=== PATIENT | female | born 1945 | race Caucasian/White ===

== ENCOUNTER 2017-11-09 21:31 | Inpatient (IN) | payer MEDICARE, MEDICAID ==
[~2017-11-09] VITALS: Ht 152.4 cm; Wt 53.8 kg
[~2017-11-09 21:31] MED LIST: FENO145T2 PO; LISI-586 PO; METO50TA PO; OMEP20TA PO; PRAV20 PO; SERO200T PO
[2017-11-09 21:58] VITALS: BP 139/60; PULSE 73; RESP 16; TEMP 98.3; O2SAT 98
--- NOTE | 2017-11-09 22:23 | PD ---
HPI . tremulous (Levy Cheng MD) Chief Complaint: Suicide Ideation/Attempt Time Seen by Provider: 22:22 (Tiffanie Vigil) Time Seen by Provider: 22:22 (Levy Cheng MD) Travel History International Travel<30 days: No Contact w/Intl Traveler<30days: No Traveled to known affect area: No (Tiffanie Vigil) International Travel<30 days: No Contact w/Intl Traveler<30days: No Traveled to known affect area: No (Levy Cheng MD) History of Present Illness HPI 78-year-old female with PMH of dementia presents to the ED under Márquez act for psychiatric evaluation. According to the Márquez act the patient states that she is going to cut off her left hand with a pair of scissors. On exam this is a pleasantly confused elderly white female in no acute distress. She denies suicidal or homicidal ideation. She denies any somatic complaints. She is oriented to date, year, the president. She knows that she lives in [place]. She states that she is here "because I kept getting attacked by wild animals." She states that "a neighbor putting them in my yard." She is unable to provide any other meaningful history. (Tiffanie Vigil) HPI pt was seen by the PA for SI and statements , but labs revealed high Blood glucose and the UTI on labs (Levy Cheng MD) PFSH Past Medical History Hx Anticoagulant Therapy: No Blood Disorders: No Anxiety: No Depression: Yes Cancer: No Cardiovascular Problems: Yes Chemotherapy: No Cerebrovascular Accident: No Diabetes: No Diminished Hearing: No Endocrine: No Gout: Yes Genitourinary: Yes Headaches: No Hypertension: Yes Immune Disorder: No Musculoskeletal: No Neurologic: No Psychiatric: Yes Reproductive: No Respiratory: No Migraines: No Schizophrenia: Yes Seizures: No PNEUMOCCOCAL Vaccine (Year): 2 ?: Not Menopausal: Yes : 1 Para: 1 (Tiffanie Vigil) Past Surgical History Genitourinary Surgery: Yes (bladder surgerY) Hysterectomy: Yes (1985) Other Surgery: Yes (left breast biopsy) (Tiffanie Vigil) Social History Alcohol Use: No Tobacco Use: Yes Substance Use: No (Tiffanie Vigil) Allergies-Medications (Allergen,Severity, Reaction): Coded Allergies: fluoxetine (Unverified Allergy, Severe, 02/01/17) Per pharmacist at [facility]. cat dander (Unverified Allergy, Unknown, Irritability/Anxiety, 02/01/17) Reported Meds & Prescriptions Reported Meds & Active Scripts Active Reported Lactulose Liq (Lactulose) 10 Gm/15 Ml Soln 30 Ml PO Q6H PRN Latuda (Lurasidone) 80 Mg Tab 80 Mg PO DAILY Pravastatin 20 Mg Tab 20 Mg PO DAILY Metoprolol Tartrate 25 Mg Tab 25 Mg PO DAILY Vitamin D (Cholecalciferol) 2,000 Unit Tab 50,000 Cap PO DAILY Pantoprazole (Pantoprazole Sodium) 20 Mg Tab 20 Mg PO DAILY Metformin ER (Metformin HCl) 500 Mg Yadi 500 Mg PO DAILY With evening meal Lisinopril 20 Mg Tab 20 Mg PO DAILY Hydrochlorothiazide 12.5 Mg Cap 12.5 Mg PO DAILY Fenofibrate 145 Mg Tab 145 Mg PO DAILY (Levy Cheng MD) Review of Systems ROS Limitations: Poor Historian (Levy Cheng MD) Physical Exam Narrative GENERAL: Well-nourished, well-developed petite female no acute distress. PSYCH: Calm, cooperative, pleasantly confused. SKIN: Focused skin assessment warm/dry. HEAD: Normocephalic. EYES: No scleral icterus. No injection or drainage. NECK: Supple, trachea midline. No JVD or lymphadenopathy. CARDIOVASCULAR: Regular rate and rhythm without murmurs, gallops, or rubs. RESPIRATORY: Breath sounds clear and equal bilaterally. No accessory muscle use. GASTROINTESTINAL: Abdomen soft, non-tender, nondistended. Active bowel sounds. MUSCULOSKELETAL: No cyanosis, or edema. BACK: Nontender without obvious deformity. No CVA tenderness. (Tiffanie Vigil) Narrative GENERAL: awake alert somewhat shakey SKIN: Warm and dry. HEAD: Atraumatic. Normocephalic. EYES: Pupils equal and round. No scleral icterus. No injection or drainage. ENT: No nasal bleeding or discharge. Mucous membranes pink and moist. NECK: Trachea midline. No JVD. CARDIOVASCULAR: Regular rate and rhythm. RESPIRATORY: No accessory muscle use. Clear to auscultation. Breath sounds equal bilaterally. GASTROINTESTINAL: Abdomen soft, non-tender, nondistended. Hepatic and splenic margins not palpable. MUSCULOSKELETAL: Extremities without clubbing, cyanosis, or edema. No obvious deformities. NEUROLOGICAL: Awake and alert. No obvious cranial nerve deficits. no obvious focal deficits . Normal speech. PSYCHIATRIC: suicidal statements at her living facility (Levy Cheng MD) Data Data Last Documented VS Vital Signs Date Time Temp Pulse Resp B/P (MAP) Pulse Ox O2 Delivery O2 Flow Rate FiO2 11/10/17 03:11 79 18 127/78 (94) 98 Room Air 11/10/17 00:12 2.00 11/09/17 21:58 98.3 (Levy Cheng MD) Orders Orders Psych Screen (11/09/17 22:04) Complete Blood Count With Diff (11/09/17 22:15) Comprehensive Metabolic Panel (11/09/17 22:15) Iv Access Insert/Monitor (11/09/17 23:23) Ecg Monitoring (11/09/17 23:23) Sodium Chlor 0.9% 1000 Ml Inj (Ns 1000 M (11/09/17 23:30) Insulin Human Regular Inj (Novolin R Inj (11/09/17 23:30) Blood Glucose (11/09/17 23:23) Blood Gas Venous (Vbg) (11/09/17 23:34) Urinalysis - C+S If Indicated (11/09/17 23:38) Sodium Chlor 0.9% 1000 Ml Inj (Ns 1000 M (11/09/17 23:45) Beta Hydroxybutyrate (Acetone) (11/09/17 22:17) Urine Culture (11/09/17 22:42) Insulin Human Regular Inj (Novolin R Inj (11/10/17 00:30) Sodium Chlor 0.9% 1000 Ml Inj (Ns 1000 M (11/10/17 00:30) Ceftriaxone Inj (Rocephin Inj) (11/10/17 01:15) (Levy Cheng MD) Labs Laboratory Tests Test 11/09/17 22:17 11/09/17 22:42 11/09/17 23:34 White Blood Count 10.1 TH/MM3 Red Blood Count 4.45 MIL/MM3 Hemoglobin 12.6 GM/DL Hematocrit 37.6 % Mean Corpuscular Volume 84.4 FL Mean Corpuscular Hemoglobin 28.3 PG Mean Corpuscular Hemoglobin Concent 33.5 % Red Cell Distribution Width 13.7 % Platelet Count 443 TH/MM3 Mean Platelet Volume 7.8 FL Neutrophils (%) (Auto) 49.0 % Lymphocytes (%) (Auto) 39.4 % Monocytes (%) (Auto) 10.4 % Eosinophils (%) (Auto) 0.6 % Basophils (%) (Auto) 0.6 % Neutrophils # (Auto) 5.0 TH/MM3 Lymphocytes # (Auto) 4.0 TH/MM3 Monocytes # (Auto) 1.1 TH/MM3 Eosinophils # (Auto) 0.1 TH/MM3 Basophils # (Auto) 0.1 TH/MM3 CBC Comment DIFF FINAL Differential Comment Blood Urea Nitrogen 17 MG/DL Creatinine 1.23 MG/DL Random Glucose 511 MG/DL Total Protein 7.9 GM/DL Albumin 4.0 GM/DL Calcium Level 9.4 MG/DL Alkaline Phosphatase 82 U/L Aspartate Amino Transf (AST/SGOT) 17 U/L Alanine Aminotransferase (ALT/SGPT) 33 U/L Total Bilirubin 0.4 MG/DL Sodium Level 131 MEQ/L Potassium Level 3.9 MEQ/L Chloride Level 94 MEQ/L Carbon Dioxide Level 26.8 MEQ/L Anion Gap 10 MEQ/L Estimat Glomerular Filtration Rate 43 ML/MIN B-Hydroxybutyrate 0.09 MMOL/L Urine Color LIGHT-YELLOW Urine Turbidity HAZY Urine pH 5.0 Urine Specific [place] 1.019 Urine Protein NEG mg/dL Urine Glucose (UA) 1000 mg/dL Urine Ketones NEG mg/dL Urine Occult Blood NEG Urine Nitrite NEG Urine Bilirubin NEG Urine Urobilinogen LESS THAN 2.0 MG/DL Urine Leukocyte Esterase LARGE Urine RBC 3 /hpf Urine WBC 146 /hpf Urine Squamous Epithelial Cells <1 /hpf Urine Transitional Epithelial Cells <1 /hpf Urine Bacteria RARE /hpf Urine Mucus FEW /lpf Microscopic Urinalysis Comment CULTURE INDICATED Blood Gas Puncture Site IV Blood Gas Patient Temperature 98.6 Venous Blood pH 7.29 Venous Blood Partial Pressure CO2 53 mmHg Venous Blood Partial Pressure O2 22 mmHg Venous Blood HCO3 25 mmol/L Venous Blood Oxygen Saturation 25 % Venous Blood Oxygen Content 4.6 Vol % Venous Blood Base Excess -1.2 mmol/L Blood Gas Inspired Oxygen 21 % (Levy Chegn MD) MDM Medical Decision Making Medical Screen Exam Complete: Yes Emergency Medical Condition: Yes Differential Diagnosis Adjustment disorder versus anxiety versus bipolar versus depression versus dementia versus electrolyte disorder versus malingering versus mood disorder versus ODD versus psychosis versus PTSD versus schizophrenia versus schizoaffective disorder versus substance-induced mood disorder versus other Narrative Course 78-year-old female with PMH of dementia presents to the ED under Márquez act for psychiatric evaluation. Vitals reviewed. On arrival the patient is pleasantly confused, unable to provide much meaningful history. Physical exam is unremarkable. Lab work ordered and pending. Anticipate medical clearance for psychiatric evaluation. (Tiffanie Vigil) Medical Screen Exam Complete: Yes Emergency Medical Condition: Yes Differential Diagnosis UTI vs hyperglycemia vs sepsis vs DKA vs other Narrative Course urine has multiple WBC and is treated with ceftriaxone, and glucose treated with NS and then 8 Units of Insulin R and now medically cleared for psych eval, SHe is given an Rx for Keflex to take as she is evaluated for psyche (Levy Cheng MD) Diagnosis Primary Impression: Hyperglycemia Additional Impression: UTI (urinary tract infection) Scripts Cephalexin (Keflex) 500 Mg Cap 500 MG PO Q8H for Infection, #21 CAP 0 Refills Prov: Levy Cheng MD 11/10/17 Tiffanie Vigil November 09, 2017 22:23 Levy Cheng MD November 10, 2017 03:37
[2017-11-09 22:32] LABS: BASOPHIL # 0.1 TH/MM3 (0-0.2); BASOPHIL % 0.6 % (0.0-2.0); EOSINOPHIL # 0.1 TH/MM3 (0-0.4); EOSINOPHIL % 0.6 % (0.0-4.0); HEMATOCRIT 37.6 % (35.0-46.0); HEMOGLOBIN 12.6 GM/DL (11.6-15.3); LYMPH % 39.4 % (9.0-44.0); MEAN CELL VOLUME 84.4 FL (80.0-100.0); MEAN CORPUSCULAR HEMOGLOBIN 28.3 PG (27.0-34.0); MEAN CORPUSCULAR HGB CONC 33.5 % (32.0-36.0); MEAN PLATELET VOLUME 7.8 FL (7.0-11.0); MONO % 10.4 % (0.0-8.0); MONOCYTE # 1.1 TH/MM3 (0-0.9); PLATELET COUNT 443 TH/MM3 (150-450); RED BLOOD COUNT 4.45 MIL/MM3 (4.00-5.30); RED CELL DISTRIBUTION WIDTH 13.7 % (11.6-17.2); WHITE BLOOD COUNT 10.1 TH/MM3 (4.0-11.0)
[2017-11-09 23:14] LABS: ALKALINE PHOSPHATASE 82 U/L (45-117); ALT (GPT) 33 U/L (10-53); AST (GOT) 17 U/L (15-37); BICARBONATE 26.8 MEQ/L (21.0-32.0); BLOOD UREA NITROGEN 17 MG/DL (7-18); CALCIUM 9.4 MG/DL (8.5-10.1); CHLORIDE 94 MEQ/L (98-107); CREATININE 1.23 MG/DL (0.50-1.00); GLOMERULAR FILTRATION RATE 43 ML/MIN (>89); SODIUM (NA) 131 MEQ/L (136-145); TOTAL BILIRUBIN ADULT 0.4 MG/DL (0.2-1.0); TOTAL PROTEIN 7.9 GM/DL (6.4-8.2)
[2017-11-09 23:18] LABS: GLUCOSE,RANDOM 511 MG/DL (74-106)
[2017-11-09] MEDS ORDERED: SODIUM CHLOR 0.9% 1000 ML INJ 1,000 ML IV ONE ×2 (23:30→23:45)
[2017-11-09] MEDS ORDERED: INSULIN HUMAN REGULAR 1,000 UNITS/10 ML VIAL IV PUSH ONE (23:30)
[2017-11-09 23:45] VITALS: BP 129/58; PULSE 77; RESP 18; O2SAT 99
[2017-11-10 00:12] VITALS: O2SAT 100
[2017-11-10 00:12] LABS: BACTERIA, URINE RARE /hpf; BILIRUBIN, URINE NEG (NEG); BLOOD, URINE NEG (NEG); GLUCOSE,URINE 1000 mg/dL (NEG); KETONE, URINE NEG (NEG); MUCUS URINE FEW /lpf (OCC); NITRITE,URINE NEG (NEG); SQUAMOUS EPITHELIAL CELL URINE <1 /hpf (0-5); TRANSITIONAL EPI CELLS, URINE <1 /hpf; URINE COLOR LIGHT-YELLOW (YELLW/STRAW); URINE LEUKOCYTE ESTERASE LARGE (NEG)
[2017-11-10] MEDS ORDERED: MEROPENEM 1000 MG VIAL IV SCH (00:30)
[2017-11-10] MEDS ORDERED: INSULIN HUMAN REGULAR 1,000 UNITS/10 ML VIAL IV PUSH ONE (00:30)
[2017-11-10] MEDS ORDERED: SODIUM CHLOR 0.9% 1000 ML INJ 1,000 ML IV ONE (00:30)
[2017-11-10] MEDS ORDERED: VITA20003 PO (00:49)
[2017-11-10] MEDS ORDERED: FENO145T2 PO (00:49)
[2017-11-10] MEDS ORDERED: METF500T4 PO (00:49)
[2017-11-10] MEDS ORDERED: LISI-515 PO (00:49)
[2017-11-10] MEDS ORDERED: HYDR12.57 PO (00:49)
[2017-11-10] MEDS ORDERED: PANT20TA2 PO (00:49)
[2017-11-10] MEDS ORDERED: QUET1TAB9 PO (00:50)
[2017-11-10] MEDS ORDERED: PRAV20TA2 PO (00:51)
[2017-11-10] MEDS ORDERED: LURA80 PO (00:51)
[2017-11-10] MEDS ORDERED: METO25TA3 PO (00:51)
[2017-11-10] MEDS ORDERED: LACT10SO PO (00:51)
[2017-11-10] MEDS ORDERED: cefTRIAXone INJ 1,000 MG in SODIUM CHLORIDE 0.9% INJ 100 ML IV ONE (01:15)
[2017-11-10 03:11] VITALS: BP 127/78; PULSE 79; RESP 18; O2SAT 98
[2017-11-10] MEDS ORDERED: CEPH-460 PO (03:54)
--- NOTE | 2017-11-10 05:03 | RADRPT ---
EXAM DATE: 11/10/2017 4:29 AM EDT AGE/SEX: 72 years / Female INDICATIONS: Cough. CLINICAL DATA: This is the patient's initial encounter. Patient reports that signs and symptoms have been present for 1 day and indicates a pain score of 0/10. MEDICAL/SURGICAL HISTORY: Hypertension. Smoker. Hysterectomy. COMPARISON: No prior [facility] exams available for comparison. FINDINGS: PA and lateral views of the chest demonstrate the lungs to be symmetrically aerated without evidence of mass, infiltrate or effusion. The cardiomediastinal contours are unremarkable. Osseous structures are intact. CONCLUSION: No acute cardiopulmonary disease. There is no evidence of pneumonia. Electronically signed by: Luis Humphries MD 11/10/2017 5:02 AM EDT
[2017-11-10 05:32] VITALS: BP 110/65; PULSE 78; RESP 16; TEMP 98.1; O2SAT 98
[2017-11-10] MEDS ORDERED: LORazepam 1 MG TAB PO PRN (07:45)
[2017-11-10] MEDS ORDERED: ALUMINUM/MAGNESIUM/SIMETH 30 ML CUP PO PRN (07:45)
[2017-11-10] MEDS ORDERED: LORazepam 2 MG/ML VIAL IM PRN ×2 (07:45)
[2017-11-10] MEDS ORDERED: ACETAMINOPHEN 325 MG TAB PO PRN (07:45)
[2017-11-10] MEDS ORDERED: MAGNESIUM HYDROXIDE SUSP 30 ML CUP PO PRN (07:45)
[2017-11-10] MEDS: NICOTINE 21 MG/24 HR PATCH T-DERMAL SCH (09:00)
[2017-11-10 10:34] VITALS: BP 141/60; PULSE 67; RESP 18; TEMP 98.3; O2SAT 99
[2017-11-10] MEDS: LISINOPRIL 20 MG TAB PO SCH (11:07)
[2017-11-10] MEDS: PANTOPRAZOLE SOD 20 MG DELAYED RELEASE TAB PO SCH (11:07)
[2017-11-10] MEDS: metFORMIN HCL 500 MG TAB PO SCH (11:07)
[2017-11-10] MEDS: HYDROCHLOROTHIAZIDE 12.5 MG CAP PO SCH (11:07)
[2017-11-10] MEDS: METOPROLOL TARTRATE 25 MG TAB PO SCH (11:07)
[2017-11-10] MEDS: LURASIDONE 80 MG TAB PO SCH (11:07)
[2017-11-10] MEDS: FENOFIBRATE 145 MG TAB PO SCH (11:07)
[2017-11-10] MEDS: PRAVASTATIN SOD 20 MG TAB PO SCH (11:08)
--- NOTE | 2017-11-10 12:28 | HHI.HP ---
Provisional Diagnosis Admission Date November 10, 2017 at 07:38 [place] I. Schizophrenia [place] II. Deferred [place] III. UTI, DM [place] IV. non-compliant with medication [place] V. 40 Certification of Person's Competence To Provide Express and Informed Consent I have personally examined Tammi Champion , a person being served at [facility] on, November 10, 2017 11:59. Express and informed consent means consent voluntarily given in writing, by a competent person, after sufficient explanation and disclosure of the subject matter involved to enable the person to make a knowing and willful decision without any element of force, fraud, deceit, duress, or other form of constraint or coercion. This person is 18 years of age or older, is not now known to be incompetent to consent to treatment with a guardian advocate, and does not have a health care surrogate or proxy currently making medical treatment decisions. I have found this person to be one of the following: [] Competent to provide express and informed consent, as defined above, for voluntary admission to this facility and is competent to provide express and informed consent for treatment. He/she has the consistent capacity to make well reasoned, willful, and knowing decisions concerning his or her medical or mental health treatment. The person fully and consistently understands the purpose of the admission for examination/placement and is fully capable of personally exercising all rights assured under [place] [] Incompetent to provide express and informed consent to voluntary admission, and this is incompetent to provide express and informed consent to treatment. The person must be transferred to involuntary status and a petition for a guardian advocate filed with the Circuit Court. [x] Refusing to provide express and informed consent to voluntary admission but is competent to provide express and informed consent for treatment. The person must be discharged or transferred to involuntary status. Form shall be completed within 24 hours of a person's arrival at the receiving facility and filed in the clinical record of each person: 1. Admitted on a voluntary basis 2. Permitted to provide express and informed consent to his/her own treatment 3. Allowed to transfer from involuntary to voluntary status 4. Prior to permitting a person to consent to his or her own treatment after having been previously found incompetent to consent to treatment. History of Present Illness Capacity: Has Capacity HPI The patient is a 72-year-old woman, domiciled in [facility], , with a 50 y/o daughter, supported by SS, with PPHx od schizophrenia and dementia, multiple psychiatric hospitalizations, hospitalized here in [place] in 2014, documentation reviewed, no SAs, she is on Latuda 80 mg precribed by visiting psychiatrist, with PMH of DM, HTN, who presents to the ED under Márquez act for psychiatric evaluation. According to the Márquez act the patient states that she is going to cut off her left hand with a pair of scissors to kill her self. On initial ER exam this is a pleasantly confused elderly white female in no acute distress. She denies suicidal or homicidal ideation. She denies any somatic complaints. She is oriented to date, year, the president. She knows that she lives in [place]. She states that she is here "because I kept getting attacked by wild animals." She states that "a neighbor putting them in my yard." She is unable to provide any other meaningful history. On psychiatric evaluation the patient is calm, cooperative. The patient reports that she is very hungry. She says that she had a good sleep. She is malodorous disorganized, but redirectable. The patient reports that she has been very depressed. She also states that she is "very suicidal" but at the same time she is laughing inappropriately. The patient reported that she has been hearing voices telling her different things, but would not elaborate about these voices. "Sometimes the voices tell me go here or go there". She reports that she has been so depressed that she stopped taking her medication for diabetes, hypertension and schizophrenia. "I do not care anymore". The patient does not have an active plan to commit suicide at this moment. He is more focused in getting. She has been a little bit agitated in the ER, very disorganized, talking to herself. But no aggressive behavior reported. The patient is fully oriented 3, with no fluctuation of consciousness, no attention deficit at this moment. The patient denies the use of alcohol and illegal drugs. She was initially diagnosed with UTI in the ER, was treated with Keflex 100 mg every 8 hours, her random glucose was over 500s teated with insulin. Review of Systems Constitutional: DENIES: Diaphoretic episodes, Fatigue, Fever, Weight gain, Weight loss, Chills, Dizziness, Change in appetite, Night Sweats Endocrine: DENIES: Abnorml menstrual pattern, Heat/cold intolerance, Polydipsia , Polyuria, Polyphagia Eyes: DENIES: Blurred vision, Diplopia, Eye inflammation, Eye pain, Vision loss , Photosensitivity, Double Vision Ears, nose, mouth, throat: DENIES: Tinnitus, Hearing loss, Vertigo, Nasal discharge, Oral lesions, Throat pain, Hoarseness, Ear Pain, Running Nose, Epistaxis, Sinus Pain, Toothache, Odynophagia Respiratory: DENIES: Apneas, Cough, Snoring, Wheezing, Hemoptysis, Sputum production, Shortness of breath Cardiovascular: DENIES: Chest pain, Palpitations, Syncope, Dyspnea on Exertion , PND, Lower Extremity Edema, Orthopnea, Claudication Gastrointestinal: DENIES: Abdominal pain, Black stools, Bloody stools, Constipation, Diarrhea, Nausea, Vomiting, Difficulty Swallowing, Anorexia Genitourinary: DENIES: Abnormal vaginal bleeding, Dysmenorrhea, Dyspareunia, Sexual dysfunction, Urinary frequency, Urinary incontinence, Urgency, Hematuria , Dysuria, Nocturia, Vaginal discharge Musculoskeletal: DENIES: Joint pain, Muscle aches, Stiffness, Joint Swelling, Back pain, Neck pain Integumentary: DENIES: Abnormal pigmentation, Pruritus, Rash, Nail changes, Breast masses, Breast skin changes, Nipple discharge Immunologic/allergic: DENIES: Eczema, Urticaria Neurologic: DENIES: Abnormal gait, Headache, Localized weakness, Paresthesias, Seizures, Speech Problems, Tremor, Poor Balance Psychiatric: COMPLAINS OF: Depression, Delusions, DENIES: Anxiety, Confusion, Mood changes, Hallucinations, Agitation, Suicidal Ideation, Homicidal Ideation Past Psych History Violence risk - self (6 mos) increased Substance Abuse History Drugs/Alcohol past 12 months Denies the use of drugs and alcohol Past Family Social History Coded Allergies: fluoxetine (Unverified Allergy, Severe, 02/01/17) Per pharmacist at [facility]. cat dander (Unverified Allergy, Unknown, Irritability/Anxiety, 02/01/17) Active Scripts Cephalexin (Keflex) 500 Mg Cap, 500 MG PO Q8H for Infection, #21 CAP 0 Refills Prov:Levy Cheng MD 11/10/17 Reported Medications Lactulose Liq (Lactulose Liq) 10 Gm/15 Ml Soln, 30 ML PO Q6H Y for CONSTIPATION , ML 0 Refills 11/10/17 Lurasidone (Latuda) 80 Mg Tab, 80 MG PO DAILY, #30 TAB 0 Refills 11/10/17 Pravastatin (Pravastatin) 20 Mg Tab, 20 MG PO DAILY for Cholesterol Management, #30 TAB 0 Refills 11/10/17 Metoprolol Tartrate (Metoprolol Tartrate) 25 Mg Tab, 25 MG PO DAILY, #30 TAB 0 Refills 11/10/17 Cholecalciferol (Vitamin D) 2,000 Unit Tab, 19632 CAP PO DAILY 11/10/17 Pantoprazole (Pantoprazole) 20 Mg Tab, 20 MG PO DAILY for Reflux, #30 TAB 0 Refills 11/10/17 Metformin ER (Metformin ER) 500 Mg Yadi, 500 MG PO DAILY for Blood Sugar Management, TAB 0 Refills With evening meal 11/10/17 Lisinopril (Lisinopril) 20 Mg Tab, 20 MG PO DAILY, #30 TAB 0 Refills 11/10/17 Hydrochlorothiazide (Hydrochlorothiazide) 12.5 Mg Cap, 12.5 MG PO DAILY, #30 CAP 0 Refills 11/10/17 Fenofibrate (Fenofibrate) 145 Mg Tab, 145 MG PO DAILY, #30 TAB 0 Refills 11/10/17 Discontinued Reported Medications Quetiapine (Quetiapine) 200 Mg Tab, 200 MG PO BID, #60 TAB 0 Refills 11/10/17 Current Medications Medications (Trade) Dose Ordered Sig/Susy Route Start Time Stop Time Status Last Admin (Keflex) 500 mg Q8HR PO 11/11/17 06:00 (Tricor) 145 mg DAILY PO 11/10/17 09:00 11/10/17 11:07 (Microzide) 12.5 mg DAILY PO 11/10/17 09:00 11/10/17 11:07 (Prinivil) 20 mg DAILY PO 11/10/17 09:00 11/10/17 11:07 (Latuda) 80 mg DAILY PO 11/10/17 09:00 11/10/17 11:07 (Lopressor) 25 mg DAILY PO 11/10/17 09:00 11/10/17 11:07 (Protonix) 20 mg DAILY PO 11/10/17 09:00 11/10/17 11:07 (Pravachol) 20 mg DAILY PO 11/10/17 09:00 11/10/17 11:08 (Glucophage) 500 mg DAILY PO 11/10/17 09:00 11/10/17 11:07 (Ativan) 1 mg Q6H PRN PO 11/10/17 07:45 (Ativan Inj) 1 mg Q6H PRN IM 11/10/17 07:45 (Ativan) 0.5 mg Q12H PRN PO 11/10/17 07:45 (Ativan Inj) 0.5 mg Q12H PRN IM 11/10/17 07:45 (Tylenol) 650 mg Q4H PRN PO 11/10/17 07:45 (Milk Of Magnesia Liq) 30 ml DAILY PRN PO 11/10/17 07:45 (Mag-Al Plus Susp Liq) 30 ml Q6H PRN PO 11/10/17 07:45 (Habitrol 21 Mg Patch.24 Hr) 1 patch DAILY T-DERMAL 11/10/17 09:00 Family Psych History Grand mother with Schizophrenia Social History Patient was born in [place], Domiciled in [facility], , she has a 50 y/ o daughter, highest level education is HS Patient's Strengths (min. 2) She lives in a structured environment Physical Exam Vital Signs Vital Signs Date Time Temp Pulse Resp B/P (MAP) Pulse Ox O2 Delivery O2 Flow Rate FiO2 11/10/17 10:34 98.3 67 18 141/60 (87) 99 11/10/17 05:32 Room Air 11/10/17 00:12 2.00 I/O 11/10/17 11/10/17 11/11/17 08:00 16:00 00:00 Intake Total 4100 ml Balance 4100 ml Lab Results Test 11/09/17 22:17 11/09/17 22:42 11/09/17 23:34 White Blood Count 10.1 TH/MM3 Red Blood Count 4.45 MIL/MM3 Hemoglobin 12.6 GM/DL Hematocrit 37.6 % Mean Corpuscular Volume 84.4 FL Mean Corpuscular Hemoglobin 28.3 PG Mean Corpuscular Hemoglobin Concent 33.5 % Red Cell Distribution Width 13.7 % Platelet Count 443 TH/MM3 Mean Platelet Volume 7.8 FL Neutrophils (%) (Auto) 49.0 % Lymphocytes (%) (Auto) 39.4 % Monocytes (%) (Auto) 10.4 % Eosinophils (%) (Auto) 0.6 % Basophils (%) (Auto) 0.6 % Neutrophils # (Auto) 5.0 TH/MM3 Lymphocytes # (Auto) 4.0 TH/MM3 Monocytes # (Auto) 1.1 TH/MM3 Eosinophils # (Auto) 0.1 TH/MM3 Basophils # (Auto) 0.1 TH/MM3 CBC Comment DIFF FINAL Differential Comment Blood Urea Nitrogen 17 MG/DL Creatinine 1.23 MG/DL Random Glucose 511 MG/DL Total Protein 7.9 GM/DL Albumin 4.0 GM/DL Calcium Level 9.4 MG/DL Alkaline Phosphatase 82 U/L Aspartate Amino Transf (AST/SGOT) 17 U/L Alanine Aminotransferase (ALT/SGPT) 33 U/L Total Bilirubin 0.4 MG/DL Sodium Level 131 MEQ/L Potassium Level 3.9 MEQ/L Chloride Level 94 MEQ/L Carbon Dioxide Level 26.8 MEQ/L Anion Gap 10 MEQ/L Estimat Glomerular Filtration Rate 43 ML/MIN B-Hydroxybutyrate 0.09 MMOL/L Urine Color LIGHT-YELLOW Urine Turbidity HAZY Urine pH 5.0 Urine Specific [place] 1.019 Urine Protein NEG mg/dL Urine Glucose (UA) 1000 mg/dL Urine Ketones NEG mg/dL Urine Occult Blood NEG Urine Nitrite NEG Urine Bilirubin NEG Urine Urobilinogen LESS THAN 2.0 MG/DL Urine Leukocyte Esterase LARGE Urine RBC 3 /hpf Urine WBC 146 /hpf Urine Squamous Epithelial Cells <1 /hpf Urine Transitional Epithelial Cells <1 /hpf Urine Bacteria RARE /hpf Urine Mucus FEW /lpf Microscopic Urinalysis Comment CULTURE INDICATED Blood Gas Puncture Site IV Blood Gas Patient Temperature 98.6 Venous Blood pH 7.29 Venous Blood Partial Pressure CO2 53 mmHg Venous Blood Partial Pressure O2 22 mmHg Venous Blood HCO3 25 mmol/L Venous Blood Oxygen Saturation 25 % Venous Blood Oxygen Content 4.6 Vol % Venous Blood Base Excess -1.2 mmol/L Blood Gas Inspired Oxygen 21 % Date/Time Source Procedure Growth Status 11/09/17 22:42 Urine Clean Catch Urine Culture Pending Received Mental Status Examination Appearance: Malodorous Consciousness: Alert Orientation: x4 Motor Activity: Normal gait Speech: Unremarkable Language: Adequate Fund of Knowledge: Adequate Attention and Concentration: Adequate Memory: Unremarkable Mood: Appropriate, Sad Affect: Irritable Thought Process & Associations: Disorganized Thought Content: Appropriate Hallucination Type: None Delusion Type: None Suicidal Ideation: Yes Suicidal Plan: Yes Suicidal Intention: No Homicidal Ideation: No Homicidal Plan: No Homicidal Intention: No Insight: Poor Judgment: Poor Assessment & Plan Problem List: (1) Schizophrenia ICD Codes: F20.9 - Schizophrenia, unspecified Assessment & Plan: Psychiatric evaluation today the patient is quite disorganized and confused, reported symptomatology of depression with suicidal ideation. Patient was brought to the hospital because she was found with scissures in her hand stated that she wanted to commit suicide. The patient continues to be suicidal, no plan at the moment, she also has been self neglecting, no taking her medication for diabetes, hypertension and schizophrenia. Patient has a long history of schizophrenia, multiple psychiatric hospitalizations, suicide attempts, she tends to decompensate when she stopped taking psychotropics. Due to the level of psychosis and risk of danger to self, the patient would be admitted in psychiatry for stabilization and safety. Will restart Latuda 80 mg daily. Will continue Keflex 500 mg every 8 hours for 21 days for UTI. Will consult psychiatry for second opinion. Will consult hospitalist to follow-up with UTI, hyper to and diabetes. Brief supportive psychotherapy, psychoeducation and motivation provided. Collateral information from her daughter could not be obtained at this moment. Transfer to [facility]. Assessment & Plan Estimated LOS: Piter Hung MD November 10, 2017 12:28
[2017-11-10 18:45] VITALS: BP 95/45; PULSE 62; RESP 17; TEMP 98.2; O2SAT 99
[2017-11-11] MEDS: CEPHALEXIN MONOHYDRATE 500 MG CAP PO SCH ×3 (06:32→21:26)
[2017-11-11 06:38] VITALS: BP 122/58; PULSE 59; RESP 16; TEMP 97.9; O2SAT 99
[2017-11-11] MEDS: NICOTINE 21 MG/24 HR PATCH T-DERMAL SCH (09:00)
[2017-11-11] MEDS: METOPROLOL TARTRATE 25 MG TAB PO SCH ×2 (09:00→09:29)
[2017-11-11] MEDS: PRAVASTATIN SOD 20 MG TAB PO SCH (09:28)
[2017-11-11] MEDS: LURASIDONE 80 MG TAB PO SCH (09:28)
[2017-11-11] MEDS: PANTOPRAZOLE SOD 20 MG DELAYED RELEASE TAB PO SCH (09:28)
[2017-11-11] MEDS: HYDROCHLOROTHIAZIDE 12.5 MG CAP PO SCH (09:29)
[2017-11-11] MEDS: metFORMIN HCL 500 MG TAB PO SCH (09:29)
[2017-11-11] MEDS: LISINOPRIL 20 MG TAB PO SCH (09:29)
[2017-11-11] MEDS: FENOFIBRATE 145 MG TAB PO SCH (09:29)
[2017-11-11 11:38] LABS: BICARBONATE 24.7 MEQ/L (21.0-32.0); BLOOD UREA NITROGEN 16 MG/DL (7-18); CALCIUM 9.7 MG/DL (8.5-10.1); CHLORIDE 101 MEQ/L (98-107); CHOLESTEROL 161 MG/DL (120-200); CHOLESTEROL/ HDL RATIO 3.95 RATIO; CREATININE 0.92 MG/DL (0.50-1.00); GLOMERULAR FILTRATION RATE 60 ML/MIN (>89); GLUCOSE,RANDOM 332 MG/DL (74-106); HDL CHOLESTEROL 40.7 MG/DL (40.0-60.0); LDL CHOLESTEROL 84 MG/DL (0-99); SODIUM (NA) 135 MEQ/L (136-145); TRIGLYCERIDES 182 MG/DL (42-150)
[2017-11-11] MEDS ORDERED: hydrOXYzine HCL 50 MG TAB PO PRN (14:45)
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
[2017-11-11 15:51] LABS: HEMOGLOBIN A1C 15.2 % (4.3-6.0)
[2017-11-11 18:00] VITALS: BP 128/59; PULSE 85; RESP 16; TEMP 98; O2SAT 98
[2017-11-12] MEDS: CEPHALEXIN MONOHYDRATE 500 MG CAP PO SCH ×3 (06:15→20:19)
[2017-11-12 06:38] VITALS: BP 98/47; PULSE 71; RESP 16; TEMP 98.1; O2SAT 97
[2017-11-12] MEDS: NICOTINE 21 MG/24 HR PATCH T-DERMAL SCH (09:00)
[2017-11-12] MEDS: LISINOPRIL 20 MG TAB PO SCH (10:06)
[2017-11-12] MEDS: HYDROCHLOROTHIAZIDE 12.5 MG CAP PO SCH (10:06)
[2017-11-12] MEDS: PRAVASTATIN SOD 20 MG TAB PO SCH (10:06)
[2017-11-12] MEDS: METOPROLOL TARTRATE 25 MG TAB PO SCH (10:06)
[2017-11-12] MEDS: PANTOPRAZOLE SOD 20 MG DELAYED RELEASE TAB PO SCH (10:06)
[2017-11-12] MEDS: FENOFIBRATE 145 MG TAB PO SCH (10:06)
[2017-11-12] MEDS: LURASIDONE 80 MG TAB PO SCH (10:07)
[2017-11-12] MEDS: metFORMIN HCL 500 MG TAB PO SCH (10:07)
--- NOTE | 2017-11-12 15:09 | HHI.PYPN ---
Subjective Remarks Chart reviewed and discussed with nursing. Patient is in her room without a gown. She is confused and rambling with loose associations. 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 Her blood glucose on 11/09 was 511 and her glucose on 11/11 was 322. She is medication compliant. She states that she is sleeping and eating well. Her mood is good. She is very lonely and like to have people in her room. When asked if thought she could harm herself of others she responded, " no, I am not that kind of person." Mental Status Examination Appearance: Malodorous Consciousness: Alert Orientation: x4 Motor Activity: Normal gait Speech: Unremarkable Language: Adequate Fund of Knowledge: Adequate Attention and Concentration: Adequate Memory: Unremarkable Mood: Appropriate, Sad Affect: Irritable Thought Process & Associations: Loose associations, Disorganized Thought Content: Appropriate Hallucination Type: None Delusion Type: None Suicidal Ideation: No Suicidal Plan: No Suicidal Intention: No Homicidal Ideation: No Homicidal Plan: No Homicidal Intention: No Insight: Poor Judgment: Poor Results Labs Date/Time Source Procedure Growth Status 11/09/17 22:42 Urine Clean Catch Urine Culture - Final Staphylococcus Lugdunensis Complete Vitals/IOs Vital Signs Date Time Temp Pulse Resp B/P (MAP) Pulse Ox O2 Delivery O2 Flow Rate FiO2 11/12/17 06:38 98.1 71 16 98/47 (64) 97 11/10/17 05:32 Room Air 11/10/17 00:12 2.00 Intake and Output 11/12/17 11/12/17 11/13/17 08:00 16:00 00:00 Intake Total 960 ml Balance 960 ml Assessment & Plan Problem List: (1) Schizophrenia ICD Codes: F20.9 - Schizophrenia, unspecified Assessment & Plan: Patient is confused and disorganized. She is a diabetic with an elevated blood glucose. Medical consult placed for follow up. She denies AVH and does not appear internally stimulated. She is able to recall the day and month , but not the year. She is pleasant and asked this provider to stay longer so that she would have company. Assessment & Plan Estimated LOS: days Justification for Cont. Inpt. Moving this patient to a lower level of care may result in her decompensation. Problem Qualifiers (1) Schizophrenia: Qualified Codes: F20.1 - Disorganized schizophrenia Kirsten Mayen November 12, 2017 15:09
[2017-11-12] MEDS ORDERED: GLUCAGON 1 MG/ML VIAL OTHER PRN (16:00)
[2017-11-12] MEDS ORDERED: DEXTROSE 50% IN WATER 50 ML VIAL(D50) IV PUSH PRN (16:00)
[2017-11-12] MEDS: INSULIN ASPART SUPPLEMENTAL SCALE SQ SCH ×2 (16:52→20:18)
[2017-11-12 18:00] VITALS: BP 130/58; PULSE 69; RESP 16; TEMP 97.4; O2SAT 94
[2017-11-13 05:22] VITALS: BP 109/56; PULSE 71; RESP 16; TEMP 97.6; O2SAT 98
[2017-11-13] MEDS: CEPHALEXIN MONOHYDRATE 500 MG CAP PO SCH (05:30)
[2017-11-13] MEDS: INSULIN ASPART SUPPLEMENTAL SCALE SQ SCH ×4 (06:46→21:00)
[2017-11-13] MEDS: METOPROLOL TARTRATE 25 MG TAB PO SCH (09:35)
[2017-11-13] MEDS: PANTOPRAZOLE SOD 20 MG DELAYED RELEASE TAB PO SCH (09:35)
[2017-11-13] MEDS: HYDROCHLOROTHIAZIDE 12.5 MG CAP PO SCH (09:35)
[2017-11-13] MEDS: PRAVASTATIN SOD 20 MG TAB PO SCH (09:35)
[2017-11-13] MEDS: LISINOPRIL 20 MG TAB PO SCH (09:35)
[2017-11-13] MEDS: FENOFIBRATE 145 MG TAB PO SCH (09:35)
[2017-11-13] MEDS: metFORMIN HCL 500 MG TAB PO SCH ×2 (09:36→17:36)
[2017-11-13] MEDS: LURASIDONE 80 MG TAB PO SCH (09:36)
[2017-11-13] MEDS ORDERED: GLUCAGON 1 MG/ML VIAL OTHER PRN (10:00)
[2017-11-13] MEDS ORDERED: DEXTROSE 50% IN WATER 50 ML VIAL(D50) IV PUSH PRN (10:00)
[2017-11-13] MEDS ORDERED: cloNIDine HCL 0.1 MG TAB PO PRN (10:15)
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
[2017-11-13] MEDS: INSULIN DETEMIR 100 UNITS/ML VIAL SQ SCH (11:31)
[2017-11-13] MEDS: CIPROFLOXACIN 500 MG TAB PO SCH (12:00)
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
[2017-11-13 19:02] VITALS: BP 108/59; PULSE 67; RESP 16; TEMP 97.7; O2SAT 67
[2017-11-14] MEDS: CIPROFLOXACIN 500 MG TAB PO SCH
[2017-11-14 04:10] VITALS: BP 106/52; PULSE 70; RESP 16; TEMP 97.6; O2SAT 95
[2017-11-14] MEDS: INSULIN ASPART SUPPLEMENTAL SCALE SQ SCH ×4 (08:00→21:00)
[2017-11-14] MEDS: INSULIN DETEMIR 100 UNITS/ML VIAL SQ SCH ×2 (08:00→20:59)
[2017-11-14 08:11] LABS: CALCIUM 8.9 MG/DL (8.5-10.1); CREATININE 0.87 MG/DL (0.50-1.00)
[2017-11-14] MEDS: LISINOPRIL 20 MG TAB PO SCH (09:00)
[2017-11-14] MEDS: METOPROLOL TARTRATE 25 MG TAB PO SCH (09:00)
[2017-11-14] MEDS: HYDROCHLOROTHIAZIDE 12.5 MG CAP PO SCH (09:00)
[2017-11-14 09:15] VITALS: BP 104/55; PULSE 64
[2017-11-14] MEDS: metFORMIN HCL 500 MG TAB PO SCH ×2 (09:16→17:28)
[2017-11-14] MEDS: PANTOPRAZOLE SOD 20 MG DELAYED RELEASE TAB PO SCH (09:16)
[2017-11-14] MEDS: PRAVASTATIN SOD 20 MG TAB PO SCH (09:16)
[2017-11-14] MEDS: FENOFIBRATE 145 MG TAB PO SCH (09:22)
[2017-11-14] MEDS: LURASIDONE 80 MG TAB PO SCH (09:22)
--- NOTE | 2017-11-14 12:35 | HHI.PR ---
Subjective Remarks Follow-up on patient with hypertension, diabetes, UTI. Patient seen and examined. Patient states that she does occasionally get dizzy upon standing but states she has not had any issues for the past several days and did not feel dizzy this morning. She denies any fever chills. She denies any chest pain or shortness of breath. She denies any nausea, vomiting or abdominal pain. She denies any urinary difficulties, diarrhea or constipation. She tells me that she believes her entire body has been replaced with steel. Discussed with nursing staff, low BP this a.m. No other acute issues noted. Objective Vitals Vital Signs Date Time Temp Pulse Resp B/P (MAP) Pulse Ox O2 Delivery O2 Flow Rate FiO2 11/14/17 09:15 64 104/55 (71) 11/14/17 04:10 97.6 70 16 106/52 (70) 95 11/13/17 19:02 97.7 67 16 108/59 (75) 67 I/O 11/13/17 11/13/17 11/13/17 11/14/17 11/14/17 11/14/17 07:00 15:00 23:00 07:00 15:00 23:00 Intake Total 600 ml Balance 600 ml Intake Oral 600 ml # Voids 3 Result Diagram: 11/14/17 0613 Imaging Last Impressions Chest X-Ray 11/10/17 0000 Signed Impressions: CONCLUSION: No acute cardiopulmonary disease. There is no evidence of pneumonia. Objective Remarks GENERAL: Well-developed well-nourished pleasant elderly female, no acute distress. Sitting in the day room watching TV. Appears comfortable. SKIN: Warm and dry. No obvious rash. HEAD: Atraumatic. Normocephalic. EYES: Extraocular motions intact. No scleral icterus. No injection or drainage. ENT: Nose without drainage. Airway patent. MMM. NECK: Trachea midline. CARDIOVASCULAR: Regular rate and rhythm without murmurs RESPIRATORY: Nonlabored. Clear to auscultation. Breath sounds equal bilaterally. No wheezes GASTROINTESTINAL: Abdomen soft, non-tender, nondistended. No guarding. MUSCULOSKELETAL: Extremities without edema. No obvious deformities. NEUROLOGICAL: Awake and alert. Able to move all extremities spontaneously. No focal neurologic finding appreciated. Normal speech. PSYCHIATRIC: Calm and cooperative exam A/P Assessment and Plan 72 yr old female admitted under the psychiatry service. Hospitalist service was consulted for management of her BS. Pt has a prior hx of DM, HTN, schizophrenia and dementia. Schizophrenia Dementia -Management per psychiatric team Diabetes Mellitus HbA1C 15.2 pt not on insulin. -Increase Levemir to 5 units twice daily -Patient started on metformin 500 mg p.o. twice daily, plan to increase to thousand milligrams twice daily in the next several days if able to tolerate -Continue Accu-Cheks and insulin sliding scale -Patient will require insulin at discharge -nurses educator HTN Now hypotensive, occasionally symptomatic -Hold hydrochlorothiazide -Decrease lisinopril dose to 10 mg daily with hold parameters -Continue on Lopressor with hold parameters -Fall precautions -Obtain orthostatic BP measurements -Continue to monitor BP and adjust treatment accordingly UTI Urine culture growing Staphylococcus lugdunensis Continue on Cipro 250mg BID x 3 days DVT prophylaxis Patient is ambulatory Ana Rosa Bone November 14, 2017 12:35
--- NOTE | 2017-11-14 16:56 | HHI.PYPN ---
Subjective Remarks Patient is seen in day room with nurse diandra, patient calm cooperative pleasant with me he did not remember me from before the weekend. She is well oriented to place time and situation, did know this was . She denies suicidality or homicidality voices or visions. The times I wonder if she is responding to some mild internal stimuli. She is upset and somewhat anxious about the fact that she is uncertain about her finances and uncertain about where she will be living when she leaves here. For now continue treatment Review of Systems Except as stated in HPI: all other systems reviewed are Neg Mental Status Examination Appearance: Appropriate Consciousness: Alert Orientation: x4 Motor Activity: Other (No motor abnormalities noted) Speech: Unremarkable Language: Adequate Fund of Knowledge: Adequate Attention and Concentration: Adequate Memory: Unremarkable Mood: Appropriate Affect: Appropriate Thought Process & Associations: Circumstantial Thought Content: Delusional Hallucination Type: Visual Delusion Type: Paranoid Suicidal Ideation: No Suicidal Plan: No Suicidal Intention: No Homicidal Ideation: No Homicidal Plan: No Homicidal Intention: No Insight: Poor Judgment: Poor Results Labs Test 11/14/17 06:13 Blood Urea Nitrogen 17 MG/DL Creatinine 0.87 MG/DL Random Glucose 214 MG/DL Calcium Level 8.9 MG/DL Sodium Level 138 MEQ/L Potassium Level 4.0 MEQ/L Chloride Level 100 MEQ/L Carbon Dioxide Level 29.0 MEQ/L Anion Gap 9 MEQ/L Estimat Glomerular Filtration Rate 64 ML/MIN Date/Time Source Procedure Growth Status 11/09/17 22:42 Urine Clean Catch Urine Culture - Final Staphylococcus Lugdunensis Complete Vitals/IOs Vital Signs Date Time Temp Pulse Resp B/P (MAP) Pulse Ox O2 Delivery O2 Flow Rate FiO2 11/14/17 09:15 64 104/55 (71) 11/14/17 04:10 97.6 16 95 Intake and Output 11/14/17 11/14/17 11/15/17 08:00 16:00 00:00 Intake Total 0 ml Balance 0 ml Assessment & Plan Problem List: (1) Schizophrenia ICD Codes: F20.9 - Schizophrenia, unspecified Assessment & Plan Estimated LOS: days patient calm cooperative pleasant with me today, complaint medications. For now continue treatment Justification for Cont. Inpt. At this time patient would decompensate a place to the lower level of care Discharge Planning To be determined Problem Qualifiers (1) Schizophrenia: Qualified Codes: F20.1 - Disorganized schizophrenia Casey Montano MD November 14, 2017 16:56
[2017-11-14 18:00] VITALS: BP 117/57; PULSE 84; RESP 15; TEMP 98.8; O2SAT 94
[2017-11-15 06:13] VITALS: BP 130/61; PULSE 72; RESP 16; TEMP 98.2; O2SAT 97
[2017-11-15] MEDS: INSULIN ASPART SUPPLEMENTAL SCALE SQ SCH ×4 (08:00→22:16)
[2017-11-15] MEDS: LURASIDONE 80 MG TAB PO SCH ×2 (09:00→22:17)
[2017-11-15] MEDS: PRAVASTATIN SOD 20 MG TAB PO SCH (09:00)
[2017-11-15] MEDS: LISINOPRIL 10 MG TAB PO SCH (09:00)
[2017-11-15] MEDS: INSULIN DETEMIR 100 UNITS/ML VIAL SQ SCH ×2 (09:00→22:17)
[2017-11-15] MEDS: metFORMIN HCL 500 MG TAB PO SCH ×2 (09:00→17:18)
[2017-11-15] MEDS: FENOFIBRATE 145 MG TAB PO SCH (09:00)
[2017-11-15] MEDS: PANTOPRAZOLE SOD 20 MG DELAYED RELEASE TAB PO SCH (09:00)
[2017-11-15] MEDS: METOPROLOL TARTRATE 25 MG TAB PO SCH (09:00)
--- NOTE | 2017-11-15 13:06 | HHI.PR ---
Subjective Remarks Follow up for DM, HTN, UTI. The patient is seen resting in bed. Discussed with RN, no acute concerns. The patient has no specific medical complaints including no fevers/chills, lightheadedness, cough, congestion, chest pain, shortness of breath, abdominal or urinary complaints. She does state that she feels like "something else" is in her stool, denies any blood, but when asked to further explain, she says "I don't know, hard to explain, like little extra bits". She is asking what foods could cause this. She denies any diarrhea but says it is soft to loose at times. Vital signs reviewed and stable. Also discussed her uncontrolled diabetes requiring insulin. She states she will not be able to administer insulin on her own because her hands are unsteady. She states that is why she needs to go to a nursing facility so they can help her with her insulin. Objective Vitals Vital Signs Date Time Temp Pulse Resp B/P (MAP) Pulse Ox O2 Delivery O2 Flow Rate FiO2 11/15/17 06:13 98.2 72 16 130/61 (84) 97 11/14/17 18:00 98.8 84 15 117/57 (77) 94 I/O 11/14/17 11/14/17 11/14/17 11/15/17 11/15/17 11/15/17 07:00 15:00 23:00 07:00 15:00 23:00 Intake Total 600 ml 720 ml Balance 600 ml 720 ml Intake Oral 600 ml 720 ml # Voids 3 2 Result Diagram: 11/14/17 0613 Imaging Last Impressions Chest X-Ray 11/10/17 0000 Signed Impressions: CONCLUSION: No acute cardiopulmonary disease. There is no evidence of pneumonia. Objective Remarks GENERAL: Well-nourished, well-developed elderly female patient in [facility]. SKIN: Warm and dry. No rash. HEENT: Normocephalic. Atraumatic. Pupils equal and round. Mucous membranes pink and moist. CARDIOVASCULAR: Regular rate and rhythm. No murmur appreciated. RESPIRATORY: No accessory muscle use. Clear to auscultation. Breath sounds equal bilaterally. GASTROINTESTINAL: Abdomen soft, non-tender, nondistended. Normoactive bowel sounds x4. MUSCULOSKELETAL: No obvious deformities. Extremities without clubbing, cyanosis , or edema. NEUROLOGICAL: Awake and alert. No obvious cranial nerve deficits. Motor grossly within normal limits. Moving all extremities spontaneously. Normal speech. PSYCHIATRIC: Odd mood and affect; insight and judgment fair. Medications and IVs Current Medications Medications (Trade) Dose Ordered Sig/Susy Route Start Time Stop Time Status Last Admin (Tricor) 145 mg DAILY PO 11/10/17 09:00 11/15/17 09:00 (Microzide) 12.5 mg DAILY PO 11/10/17 09:00 Future Hold 11/13/17 09:35 (Latuda) 80 mg DAILY PO 11/10/17 09:00 11/15/17 09:00 (Lopressor) 25 mg DAILY PO 11/10/17 09:00 11/15/17 09:00 (Protonix) 20 mg DAILY PO 11/10/17 09:00 11/15/17 09:00 (Pravachol) 20 mg DAILY PO 11/10/17 09:00 11/15/17 09:00 (Ativan) 1 mg Q6H PRN PO 11/10/17 07:45 (Ativan Inj) 1 mg Q6H PRN IM 11/10/17 07:45 (Ativan) 0.5 mg Q12H PRN PO 11/10/17 07:45 (Ativan Inj) 0.5 mg Q12H PRN IM 11/10/17 07:45 (Tylenol) 650 mg Q4H PRN PO 11/10/17 07:45 (Milk Of Magnesia Liq) 30 ml DAILY PRN PO 11/10/17 07:45 (Mag-Al Plus Susp Liq) 30 ml Q6H PRN PO 11/10/17 07:45 (Benadryl) 50 mg HS PRN PO 11/11/17 21:00 Future Hold (Atarax) 50 mg Q6H PRN PO 11/11/17 14:45 Future Hold (NovoLOG SUPPLEMENTAL SCALE) 1 ACHS SLIDING SCALE SQ 11/12/17 17:00 11/15/17 11:19 (D50w (Vial) Inj) 50 ml UNSCH PRN IV PUSH 11/13/17 10:00 (Glucagon Inj) 1 mg UNSCH PRN OTHER 11/13/17 10:00 (Glucophage) 500 mg BID@0900,1800 PO 11/13/17 18:00 11/15/17 09:00 (Catapres) 0.1 mg Q6H PRN PO 11/13/17 10:15 (Levemir Inj) 5 units BID SQ 11/14/17 21:00 11/15/17 09:00 (Prinivil) 10 mg DAILY PO 11/15/17 09:00 11/15/17 09:00 (Cipro) 250 mg Q12HR PO 11/15/17 21:00 A/P Assessment and Plan 72 yr old female admitted under the psychiatry service. Hospitalist service was consulted for management of her BS. Pt has a prior hx of DM, HTN, schizophrenia and dementia. Schizophrenia/Dementia -Continue management per psychiatry team Diabetes Mellitus: Uncontrolled. HbA1C 15.2, pt not on insulin. -Increased Levemir to 5 units twice daily -Patient started on metformin 500 mg p.o. twice daily, plan to increase to 1000mg bid in the next few days if able to tolerate -Continue Accu-Cheks and insulin sliding scale -Patient will require insulin at discharge however unsafe to administer on her own -staff development educator consulted, appreciate assistance -Breaker Unit Assembler consulted -Continue diabetic diet HTN: with episodes of hypotension, occasionally symptomatic -Hold hydrochlorothiazide -Decreased lisinopril dose to 10 mg daily with hold parameters -Continue on Lopressor with hold parameters -Fall precautions -Obtain orthostatic BP measurements -Continue to monitor BP and adjust treatment accordingly UTI: acute -Urine culture growing Staphylococcus lugdunensis -Continue on Cipro 250mg BID x 3 days with probiotic DVT prophylaxis: Patient is ambulatory Discharge Planning Will continue to follow blood sugars. Janine Diaz PA-C November 15, 2017 1:06 pm
--- NOTE | 2017-11-15 14:23 | HHI.PYPN ---
Subjective Remarks Patient seen in day room with floor staff, chart reviewed, patient discussed with nurse, patient compliant medications. Patient still showing the anxiety and some concern about her finances, also about placement when she leaves here. She continues fairly well oriented. Denies yesterday was . For now continue treatment Review of Systems Except as stated in HPI: all other systems reviewed are Neg Mental Status Examination Appearance: Appropriate Consciousness: Alert Orientation: x4 Motor Activity: Other (No motor abnormalities noted) Speech: Unremarkable Language: Adequate Fund of Knowledge: Adequate Attention and Concentration: Adequate Memory: Unremarkable Mood: Appropriate Affect: Appropriate Thought Process & Associations: Circumstantial Thought Content: Delusional Hallucination Type: Visual Delusion Type: Paranoid Suicidal Ideation: No Suicidal Plan: No Suicidal Intention: No Homicidal Ideation: No Homicidal Plan: No Homicidal Intention: No Insight: Poor Judgment: Poor Results Labs Date/Time Source Procedure Growth Status 11/09/17 22:42 Urine Clean Catch Urine Culture - Final Staphylococcus Lugdunensis Complete Vitals/IOs Vital Signs Date Time Temp Pulse Resp B/P (MAP) Pulse Ox O2 Delivery O2 Flow Rate FiO2 11/15/17 06:13 98.2 72 16 130/61 (84) 97 Assessment & Plan Problem List: (1) Schizophrenia ICD Codes: F20.9 - Schizophrenia, unspecified Assessment & Plan Estimated LOS: days patient continues concerned about finances and placement she was mildly vigilant with this but no overt signs of significant psychosis noted at this time Justification for Cont. Inpt. 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
[2017-11-15 17:34] VITALS: BP 104/51; PULSE 64; RESP 16; TEMP 98; O2SAT 94
[2017-11-15] MEDS: LACTOBACILLUS ACIDOPHILUS TAB PO SCH (22:17)
[2017-11-15] MEDS: CIPROFLOXACIN 250 MG TAB PO SCH (22:21)
[2017-11-16 06:14] VITALS: BP_SYST 111; BP_SYST 116; BP_SYST 98; BP_DIAS 49; BP_DIAS 53; BP_DIAS 58; PULSE 65; RESP 18; TEMP 98; O2SAT 94
[2017-11-16] MEDS: INSULIN ASPART SUPPLEMENTAL SCALE SQ SCH ×4 (08:00→21:51)
[2017-11-16] MEDS: INSULIN DETEMIR 100 UNITS/ML VIAL SQ SCH ×2 (09:00→21:51)
[2017-11-16] MEDS: LACTOBACILLUS ACIDOPHILUS TAB PO SCH ×2 (09:48→20:42)
[2017-11-16] MEDS: PANTOPRAZOLE SOD 20 MG DELAYED RELEASE TAB PO SCH (09:49)
[2017-11-16] MEDS: LISINOPRIL 10 MG TAB PO SCH (09:49)
[2017-11-16] MEDS: FENOFIBRATE 145 MG TAB PO SCH (09:49)
[2017-11-16] MEDS: LURASIDONE 80 MG TAB PO SCH (09:49)
[2017-11-16] MEDS: CIPROFLOXACIN 250 MG TAB PO SCH ×2 (09:49→20:43)
[2017-11-16] MEDS: PRAVASTATIN SOD 20 MG TAB PO SCH (09:49)
[2017-11-16] MEDS: METOPROLOL TARTRATE 25 MG TAB PO SCH (09:49)
[2017-11-16] MEDS: metFORMIN HCL 500 MG TAB PO SCH ×2 (09:52→18:00)
--- NOTE | 2017-11-16 13:41 | HHI.PYPN ---
Subjective Remarks Patient is seen in her room with nurse Yamel, chart reviewed, patient compliant medication, patient discussed with nurse. Patient remains calm cooperative though psychotic and delusional. She still feels like there are computer chips or machines in her head that can insert the thoughts should read her thoughts. She does not know how it got there but it is there. She says also affecting her sleep. For now we will add Resporal 1 mg twice daily to regimen Review of Systems Except as stated in HPI: all other systems reviewed are Neg Mental Status Examination Appearance: Appropriate Consciousness: Alert Orientation: x4 Motor Activity: Other (No motor abnormalities noted) Speech: Unremarkable Language: Adequate Fund of Knowledge: Adequate Attention and Concentration: Adequate Memory: Unremarkable Mood: Appropriate Affect: Appropriate Thought Process & Associations: Circumstantial Thought Content: Delusional Hallucination Type: Visual Delusion Type: Paranoid Suicidal Ideation: No Suicidal Plan: No Suicidal Intention: No Homicidal Ideation: No Homicidal Plan: No Homicidal Intention: No Insight: Poor Judgment: Poor Results Labs Date/Time Source Procedure Growth Status 11/09/17 22:42 Urine Clean Catch Urine Culture - Final Staphylococcus Lugdunensis Complete Vitals/IOs Vital Signs Date Time Temp Pulse Resp B/P (MAP) Pulse Ox O2 Delivery O2 Flow Rate FiO2 11/16/17 06:14 98.0 65 18 111/53 (72) 94 116/58 (77) 98/49 (65) Assessment & Plan Problem List: (1) Schizophrenia ICD Codes: F20.9 - Schizophrenia, unspecified Assessment & Plan Estimated LOS: days patient remained psychotic delusional somewhat paranoid, she medication adjustment above Justification for Cont. Inpt. 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
[2017-11-16] MEDS ORDERED: PILL SPLITTER OTHER PRN (15:00)
[2017-11-16] MEDS ORDERED: FLUCONAZOLE 100 MG TAB PO ONE (15:00)
--- NOTE | 2017-11-16 15:03 | HHI.PR ---
Subjective Remarks Follow up for uncontrolled DM, HTN, UTI. The patient complains of vaginal pruritus and burning today. She feels it is irritated from the toilet paper. She also feels the mesh panties have been irritating her so she hasn't been wearing any underwear. She denies noticing any blood or drainage from the vagina. She reports occasional dysuria. Denies any abdominal/suprapubic pain or fevers/chills. She is tolerating oral intake. She has no other medical complaints at this time. Objective Vitals Vital Signs Date Time Temp Pulse Resp B/P (MAP) Pulse Ox O2 Delivery O2 Flow Rate FiO2 11/16/17 06:14 98.0 65 18 111/53 (72) 94 116/58 (77) 98/49 (65) 11/15/17 17:34 98.0 64 16 104/51 (68) 94 I/O 11/15/17 11/15/17 11/15/17 11/16/17 11/16/17 11/16/17 06:59 14:59 22:59 06:59 14:59 22:59 Intake Total 240 ml 960 ml Balance 240 ml 960 ml Intake Oral 240 ml 960 ml Result Diagram: 11/14/17 0613 Imaging Last Impressions Chest X-Ray 11/10/17 0000 Signed Impressions: CONCLUSION: No acute cardiopulmonary disease. There is no evidence of pneumonia. Objective Remarks GENERAL: Well-nourished, well-developed elderly female patient in [facility]. SKIN: Warm and dry. No rash. HEENT: Normocephalic. Atraumatic. Pupils equal and round. Mucous membranes pink and moist. CARDIOVASCULAR: Regular rate and rhythm. No murmur appreciated. RESPIRATORY: No accessory muscle use. Clear to auscultation. Breath sounds equal bilaterally. GASTROINTESTINAL: Abdomen soft, non-tender, nondistended. Normoactive bowel sounds x4. GENITOURINARY: Vulva, labia majora/minora with erythema and patchy satellite lesions with few excoriations secondary to itching; no active drainage noticed. MUSCULOSKELETAL: No obvious deformities. Extremities without clubbing, cyanosis , or edema. NEUROLOGICAL: Awake and alert, oriented to self/birthdate, but states she only knows she is at [place] and year 2016 because that is what people tell her. No obvious cranial nerve deficits. Motor grossly within normal limits. Moving all extremities spontaneously. Normal speech. PSYCHIATRIC: Odd mood and affect; insight and judgment fair. Medications and IVs Current Medications Medications (Trade) Dose Ordered Sig/Susy Route Start Time Stop Time Status Last Admin (Tricor) 145 mg DAILY PO 11/10/17 09:00 11/16/17 09:49 (Microzide) 12.5 mg DAILY PO 11/10/17 09:00 Future Hold 11/13/17 09:35 (Latuda) 80 mg DAILY PO 11/10/17 09:00 11/16/17 09:49 (Lopressor) 25 mg DAILY PO 11/10/17 09:00 11/16/17 09:49 (Protonix) 20 mg DAILY PO 11/10/17 09:00 11/16/17 09:49 (Pravachol) 20 mg DAILY PO 11/10/17 09:00 11/16/17 09:49 (Ativan) 1 mg Q6H PRN PO 11/10/17 07:45 (Ativan Inj) 1 mg Q6H PRN IM 11/10/17 07:45 (Ativan) 0.5 mg Q12H PRN PO 11/10/17 07:45 (Ativan Inj) 0.5 mg Q12H PRN IM 11/10/17 07:45 (Tylenol) 650 mg Q4H PRN PO 11/10/17 07:45 (Milk Of Magnesia Liq) 30 ml DAILY PRN PO 11/10/17 07:45 (Mag-Al Plus Susp Liq) 30 ml Q6H PRN PO 11/10/17 07:45 (Benadryl) 50 mg HS PRN PO 11/11/17 21:00 Future Hold (Atarax) 50 mg Q6H PRN PO 11/11/17 14:45 Future Hold (NovoLOG SUPPLEMENTAL SCALE) 1 ACHS SLIDING SCALE SQ 11/12/17 17:00 11/16/17 08:00 (D50w (Vial) Inj) 50 ml UNSCH PRN IV PUSH 11/13/17 10:00 (Glucagon Inj) 1 mg UNSCH PRN OTHER 11/13/17 10:00 (Glucophage) 500 mg BID@0900,1800 PO 11/13/17 18:00 11/16/17 09:52 (Catapres) 0.1 mg Q6H PRN PO 11/13/17 10:15 (Levemir Inj) 5 units BID SQ 11/14/17 21:00 11/16/17 09:00 (Prinivil) 10 mg DAILY PO 11/15/17 09:00 11/16/17 09:49 (Cipro) 250 mg Q12HR PO 11/15/17 21:00 11/18/17 20:59 11/16/17 09:49 (Lactinex) 1 tab Q12HR PO 11/15/17 21:00 11/18/17 20:59 11/16/17 09:48 (risperDAL) 1 mg Q12HR PO 11/16/17 21:00 (Diflucan) 150 mg ONCE ONCE PO 11/16/17 15:00 11/16/17 15:01 (Pill Splitter) 1 ea UNSCH PRN OTHER 11/16/17 15:00 A/P Assessment and Plan 72 yr old female admitted under the psychiatry service. Hospitalist service was consulted for management of her BS. Pt has a prior hx of DM, HTN, schizophrenia and dementia. Schizophrenia/Dementia -Continue management per psychiatry team Diabetes Mellitus: Uncontrolled. HbA1C 15.2, pt not on insulin. -Increased Levemir to 5 units twice daily -Patient started on metformin 500 mg p.o. twice daily, plan to increase to 1000mg bid in the next few days if able to tolerate -Continue Accu-Cheks and insulin sliding scale -Patient will require insulin at discharge however unsafe to administer on her own -in service educator consulted, appreciate assistance -Referral Specialist consulted -Continue diabetic diet HTN: with episodes of hypotension, occasionally symptomatic -Held hydrochlorothiazide -Decreased lisinopril dose to 10 mg daily with hold parameters -Continue on Lopressor with hold parameters -Fall precautions -Orthostatic BP unremarkable -Continue to monitor BP and adjust treatment accordingly -symptoms improved UTI: acute -Urine culture growing Staphylococcus lugdunensis -Continue on Cipro 250mg BID x 3 days with probiotic Amanda Vulvovaginitis: acute, likely secondary to antibiotics -Give fluconazole 150mg po x1 now, may repeat in 1 week if symptoms do not improved DVT prophylaxis: Patient is ambulatory Discharge Planning Will continue to follow blood sugars. Janine Diaz PA-C November 16, 2017 3:03 pm
[2017-11-16 18:23] VITALS: BP 124/59; PULSE 72; RESP 17; TEMP 97.3; O2SAT 97
[2017-11-16] MEDS: risperiDONE 1 MG TAB PO SCH (20:42)
[2017-11-17 05:46] VITALS: BP 85/53; PULSE 73; RESP 18; TEMP 98.6; O2SAT 95
[2017-11-17 07:14] VITALS: BP_SYST 100; BP_SYST 90; BP_DIAS 65; BP_DIAS 70
[2017-11-17] MEDS: INSULIN ASPART SUPPLEMENTAL SCALE SQ SCH ×4 (08:00→21:24)
[2017-11-17] MEDS: LISINOPRIL 10 MG TAB PO SCH (09:00)
[2017-11-17] MEDS: FENOFIBRATE 145 MG TAB PO SCH (09:00)
[2017-11-17] MEDS: CIPROFLOXACIN 250 MG TAB PO SCH ×2 (09:00→20:48)
[2017-11-17] MEDS: PRAVASTATIN SOD 20 MG TAB PO SCH (09:00)
[2017-11-17] MEDS: INSULIN DETEMIR 100 UNITS/ML VIAL SQ SCH ×2 (09:00→21:23)
[2017-11-17] MEDS: METOPROLOL TARTRATE 25 MG TAB PO SCH (09:00)
[2017-11-17] MEDS: risperiDONE 1 MG TAB PO SCH ×2 (09:00→20:48)
[2017-11-17] MEDS: LACTOBACILLUS ACIDOPHILUS TAB PO SCH ×2 (09:00→20:47)
[2017-11-17] MEDS: PANTOPRAZOLE SOD 20 MG DELAYED RELEASE TAB PO SCH (09:00)
[2017-11-17] MEDS: metFORMIN HCL 500 MG TAB PO SCH ×2 (09:00→18:00)
[2017-11-17] MEDS: LURASIDONE 80 MG TAB PO SCH (10:35)
--- NOTE | 2017-11-17 11:02 | HHI.PYPN ---
Subjective Remarks Patient seen in her room with nurse Yamel, chart reviewed, patient compliant medications, patient discussed with nurse. Patient is sitting calmly in her room was talking with dietitian. Dietitian is recommending soft diet. I have ordered such. Patient questioned me as if she still had devices in her ears. She wonders if they are still there. However she is still certain that she has had those devices in the past. For now continue treatment Review of Systems Except as stated in HPI: all other systems reviewed are Neg Mental Status Examination Appearance: Appropriate Consciousness: Alert Orientation: x4 Motor Activity: Other (No motor abnormalities noted) Speech: Unremarkable Language: Adequate Fund of Knowledge: Adequate Attention and Concentration: Adequate Memory: Unremarkable Mood: Appropriate Affect: Appropriate Thought Process & Associations: Circumstantial Thought Content: Delusional Hallucination Type: Visual Delusion Type: Paranoid Suicidal Ideation: No Suicidal Plan: No Suicidal Intention: No Homicidal Ideation: No Homicidal Plan: No Homicidal Intention: No Insight: Poor Judgment: Poor Results Labs Date/Time Source Procedure Growth Status 11/09/17 22:42 Urine Clean Catch Urine Culture - Final Staphylococcus Lugdunensis Complete Vitals/IOs Vital Signs Date Time Temp Pulse Resp B/P (MAP) Pulse Ox O2 Delivery O2 Flow Rate FiO2 11/17/17 07:14 90/65 (73) 100/70 (80) 11/17/17 05:46 98.6 73 18 95 Assessment & Plan Problem List: (1) Schizophrenia ICD Codes: F20.9 - Schizophrenia, unspecified Assessment & Plan Estimated LOS: days patient continues psychotic and delusional, is compliant with medication, did order change in diet Justification for Cont. Inpt. At this time patient would decompensate a place to a lower level of care Discharge Planning To be determined Problem Qualifiers (1) Schizophrenia: Qualified Codes: F20.1 - Disorganized schizophrenia Caesy Montano MD November 17, 2017 11:02
[2017-11-17 17:04] VITALS: BP 99/49; PULSE 78; RESP 17; TEMP 98.6; O2SAT 99
[2017-11-18 06:14] VITALS: BP 102/52; PULSE 70; TEMP 98.6
[2017-11-18] MEDS: INSULIN ASPART SUPPLEMENTAL SCALE SQ SCH ×4 (08:00→21:03)
[2017-11-18] MEDS: INSULIN DETEMIR 100 UNITS/ML VIAL SQ SCH ×2 (08:51→21:03)
[2017-11-18] MEDS: LISINOPRIL 10 MG TAB PO SCH (09:00)
[2017-11-18] MEDS: PRAVASTATIN SOD 20 MG TAB PO SCH (10:37)
[2017-11-18] MEDS: CIPROFLOXACIN 250 MG TAB PO SCH (10:37)
[2017-11-18] MEDS: FENOFIBRATE 145 MG TAB PO SCH (10:38)
[2017-11-18] MEDS: LACTOBACILLUS ACIDOPHILUS TAB PO SCH (10:38)
[2017-11-18] MEDS: metFORMIN HCL 500 MG TAB PO SCH ×2 (10:38→18:02)
[2017-11-18] MEDS: PANTOPRAZOLE SOD 20 MG DELAYED RELEASE TAB PO SCH (10:38)
[2017-11-18] MEDS: risperiDONE 1 MG TAB PO SCH ×2 (10:38→20:54)
--- NOTE | 2017-11-18 11:29 | HHI.PYPN ---
Subjective Remarks Patient seen in day room with nurse Jerrica Medley. Chart reviewed. Patient compliant medications. Patient continues somewhat psychotic and delusional related to possibility of gadgets in her ears room her head. Though she is showing some slight reality testing related to this. She is compliant with her Resporal we will decrease Latuda down to 60 mg daily Review of Systems Except as stated in HPI: all other systems reviewed are Neg Mental Status Examination Appearance: Appropriate Consciousness: Alert Orientation: x4 Motor Activity: Other (No motor abnormalities noted) Speech: Unremarkable Language: Adequate Fund of Knowledge: Adequate Attention and Concentration: Adequate Memory: Unremarkable Mood: Appropriate Affect: Appropriate Thought Process & Associations: Circumstantial Thought Content: Delusional Hallucination Type: Visual Delusion Type: Paranoid Suicidal Ideation: No Suicidal Plan: No Suicidal Intention: No Homicidal Ideation: No Homicidal Plan: No Homicidal Intention: No Insight: Poor Judgment: Poor Results Labs Date/Time Source Procedure Growth Status 11/09/17 22:42 Urine Clean Catch Urine Culture - Final Staphylococcus Lugdunensis Complete Vitals/IOs Vital Signs Date Time Temp Pulse Resp B/P (MAP) Pulse Ox O2 Delivery O2 Flow Rate FiO2 11/18/17 06:14 98.6 70 102/52 (69) 11/17/17 17:04 17 99 Intake and Output 11/18/17 11/18/17 11/18/17 07:59 15:59 23:59 Intake Total 600 ml Balance 600 ml Assessment & Plan Problem List: (1) Schizophrenia ICD Codes: F20.9 - Schizophrenia, unspecified Assessment & Plan Estimated LOS: days patient continues psychotic though it is softening somewhat , she is compliant with medications, see medication adjustment above Justification for Cont. Inpt. At this time patient would decompensate a place to a lower level of care Discharge Planning To be determined Problem Qualifiers (1) Schizophrenia: Qualified Codes: F20.1 - Disorganized schizophrenia Casey Montano MD Nov 18, 2017 11:29
--- NOTE | 2017-11-18 14:45 | HHI.PR ---
Subjective Remarks Follow-up for DM, HTN, UTI, Amanda vulvovaginitis. Patient reports her vaginal pruritus has improved. Denies any fevers or chills. She is tolerating oral intake. Denies any urinary complaints. Denies any other medical complaints at this time. Objective Vitals Vital Signs Date Time Temp Pulse Resp B/P (MAP) Pulse Ox O2 Delivery O2 Flow Rate FiO2 11/18/17 06:14 98.6 70 102/52 (69) 11/17/17 17:04 98.6 78 17 99/49 (66) 99 I/O 11/17/17 11/17/17 11/17/17 11/18/17 11/18/17 11/18/17 07:00 15:00 23:00 07:00 15:00 23:00 Intake Total 120 ml 480 ml 1080 ml Balance 120 ml 480 ml 1080 ml Intake Oral 120 ml 480 ml 1080 ml # Voids 1 1 # Bowel Movements 1 Result Diagram: 11/14/17 0613 Imaging Last Impressions Chest X-Ray 11/10/17 0000 Signed Impressions: CONCLUSION: No acute cardiopulmonary disease. There is no evidence of pneumonia. Objective Remarks GENERAL: Well-nourished, well-developed elderly female patient in [facility]. SKIN: Warm and dry. HEENT: Normocephalic. Atraumatic. Pupils equal and round. Mucous membranes pink and moist. CARDIOVASCULAR: Regular rate and rhythm. No murmur appreciated. RESPIRATORY: No accessory muscle use. Clear to auscultation. Breath sounds equal bilaterally. GASTROINTESTINAL: Abdomen soft, non-tender, nondistended. Normoactive bowel sounds x4. MUSCULOSKELETAL: No obvious deformities. Extremities without clubbing, cyanosis , or edema. NEUROLOGICAL: Awake and alert. No obvious cranial nerve deficits. Motor grossly within normal limits. Moving all extremities spontaneously. Normal speech. PSYCHIATRIC: Odd mood and affect; insight and judgment fair. Medications and IVs Current Medications Medications (Trade) Dose Ordered Sig/Susy Route Start Time Stop Time Status Last Admin (Tricor) 145 mg DAILY PO 11/10/17 09:00 11/18/17 10:38 (Protonix) 20 mg DAILY PO 11/10/17 09:00 11/18/17 10:38 (Pravachol) 20 mg DAILY PO 11/10/17 09:00 11/18/17 10:37 (Ativan) 1 mg Q6H PRN PO 11/10/17 07:45 (Ativan Inj) 1 mg Q6H PRN IM 11/10/17 07:45 (Ativan) 0.5 mg Q12H PRN PO 11/10/17 07:45 (Ativan Inj) 0.5 mg Q12H PRN IM 11/10/17 07:45 (Tylenol) 650 mg Q4H PRN PO 11/10/17 07:45 (Milk Of Magnesia Liq) 30 ml DAILY PRN PO 11/10/17 07:45 (Mag-Al Plus Susp Liq) 30 ml Q6H PRN PO 11/10/17 07:45 (Benadryl) 50 mg HS PRN PO 11/11/17 21:00 Future Hold (Atarax) 50 mg Q6H PRN PO 11/11/17 14:45 Future Hold (NovoLOG SUPPLEMENTAL SCALE) 1 ACHS SLIDING SCALE SQ 11/12/17 17:00 11/18/17 11:38 (D50w (Vial) Inj) 50 ml UNSCH PRN IV PUSH 11/13/17 10:00 (Glucagon Inj) 1 mg UNSCH PRN OTHER 11/13/17 10:00 (Glucophage) 500 mg BID@0900,1800 PO 11/13/17 18:00 11/18/17 10:38 (Catapres) 0.1 mg Q6H PRN PO 11/13/17 10:15 (Levemir Inj) 5 units BID SQ 11/14/17 21:00 11/18/17 08:51 (Prinivil) 10 mg DAILY PO 11/15/17 09:00 11/17/17 09:00 (Cipro) 250 mg Q12HR PO 11/15/17 21:00 11/18/17 20:59 11/18/17 10:37 (Lactinex) 1 tab Q12HR PO 11/15/17 21:00 11/18/17 20:59 11/18/17 10:38 (risperDAL) 1 mg Q12HR PO 11/16/17 21:00 11/18/17 10:38 (Pill Splitter) 1 ea UNSCH PRN OTHER 11/16/17 15:00 (Lopressor) 12.5 mg BID PO 11/18/17 21:00 (Latuda) 60 mg DAILY PO 11/19/17 09:00 A/P Assessment and Plan 72 yr old female admitted under the psychiatry service. Hospitalist service was consulted for management of her BS. Pt has a prior hx of DM, HTN, schizophrenia and dementia. Schizophrenia/Dementia -Continue management per psychiatry team Diabetes Mellitus: Uncontrolled. Blood glucose 511 upon arrival. HbA1C 15.2, pt not on insulin. -Increased Levemir to 5 units twice daily -Patient started on metformin 500 mg p.o. twice daily, plan to increase to 1000mg bid if able to tolerate -Continue Accu-Cheks and insulin sliding scale -Patient will require insulin at discharge however unsafe to administer on her own -unit educator consulted, appreciate assistance -Supervisor Intermediates consulted -Continue diabetic diet HTN: with episodes of hypotension, occasionally symptomatic -Held hydrochlorothiazide -Decreased lisinopril dose to 5 mg daily with hold parameters -Continue on Lopressor with hold parameters, change dosing to 12.5 mg bid -Fall precautions -Orthostatic BP unremarkable -Continue to monitor BP and adjust treatment accordingly UTI: acute -Urine culture growing Staphylococcus lugdunensis -Continue on Cipro 250mg BID x 3 days with probiotic; completed treatment 11/18. Amanda Vulvovaginitis: acute, likely secondary to antibiotics -Given fluconazole 150mg po x1, may repeat in 1 week if symptoms do not improve -symptoms improving DVT prophylaxis: Patient is ambulatory Discharge Planning Will continue to follow BP and blood sugars and adjust medications accordingly. Janine Diaz PA-C Nov 18, 2017 2:45 pm
[2017-11-18 17:29] VITALS: BP 106/57; PULSE 84; RESP 16; TEMP 97.6; O2SAT 97
[2017-11-18] MEDS: METOPROLOL TARTRATE 25 MG TAB PO SCH (20:53)
[2017-11-19 06:14] VITALS: BP 117/56; PULSE 79; RESP 15; TEMP 97.6; O2SAT 96
[2017-11-19] MEDS: INSULIN ASPART SUPPLEMENTAL SCALE SQ SCH ×4 (08:03→21:55)
[2017-11-19] MEDS: LURASIDONE 40 MG TAB PO SCH (09:00)
[2017-11-19] MEDS: INSULIN DETEMIR 100 UNITS/ML VIAL SQ SCH ×2 (09:05→21:42)
[2017-11-19] MEDS: risperiDONE 1 MG TAB PO SCH ×2 (09:15→21:42)
[2017-11-19] MEDS: PANTOPRAZOLE SOD 20 MG DELAYED RELEASE TAB PO SCH (09:15)
[2017-11-19] MEDS: METOPROLOL TARTRATE 25 MG TAB PO SCH ×2 (09:18→21:55)
[2017-11-19] MEDS: FENOFIBRATE 145 MG TAB PO SCH (09:19)
[2017-11-19] MEDS: LISINOPRIL 10 MG TAB PO SCH (09:19)
[2017-11-19] MEDS: PRAVASTATIN SOD 20 MG TAB PO SCH (09:19)
[2017-11-19] MEDS: metFORMIN HCL 500 MG TAB PO SCH ×2 (10:53→18:34)
--- NOTE | 2017-11-19 17:09 | HHI.PYPN ---
Subjective Remarks Patient was seen and case discussed with nursing. Patient refuses the interview today thinking I am not a doctor. Because I am wearing a gold chain that is hidden under my shirt. Per nursing she does not want to go back to her assisted living because of wild animals. Compliant with the medications Mental Status Examination Appearance: Appropriate Consciousness: Alert Orientation: x4 Motor Activity: Other (No motor abnormalities noted) Speech: Unremarkable Language: Adequate Fund of Knowledge: Adequate Attention and Concentration: Adequate Memory: Unremarkable Mood: Appropriate Affect: Appropriate Thought Process & Associations: Circumstantial Thought Content: Delusional Hallucination Type: Visual Delusion Type: Paranoid Suicidal Ideation: No Suicidal Plan: No Suicidal Intention: No Homicidal Ideation: No Homicidal Plan: No Homicidal Intention: No Insight: Poor Judgment: Poor Results Labs Date/Time Source Procedure Growth Status 11/09/17 22:42 Urine Clean Catch Urine Culture - Final Staphylococcus Lugdunensis Complete Vitals/IOs Vital Signs Date Time Temp Pulse Resp B/P (MAP) Pulse Ox O2 Delivery O2 Flow Rate FiO2 11/19/17 06:14 97.6 79 15 117/56 (76) 96 Intake and Output 11/19/17 11/19/17 11/20/17 08:00 16:00 00:00 Intake Total 0 ml 360 ml Balance 0 ml 360 ml Assessment & Plan Problem List: (1) Schizophrenia ICD Codes: F20.9 - Schizophrenia, unspecified Assessment & Plan Patient would decompensate in a less restrictive setting Justification for Cont. Inpt. Continue current treatment plan Problem Qualifiers (1) Schizophrenia: Qualified Codes: F20.1 - Disorganized schizophrenia Brian Nicholson DO Nov 19, 2017 17:09
[2017-11-19 17:50] VITALS: BP 120/53; PULSE 64; RESP 18; TEMP 98.1; O2SAT 96
[2017-11-20] MEDS: LORazepam 0.5 MG TAB PO PRN (03:39)
[2017-11-20 06:05] VITALS: BP 106/50; PULSE 63; RESP 18; TEMP 97.1; O2SAT 95
[2017-11-20] MEDS: INSULIN ASPART SUPPLEMENTAL SCALE SQ SCH ×4 (08:00→21:40)
[2017-11-20] MEDS: INSULIN DETEMIR 100 UNITS/ML VIAL SQ SCH ×2 (08:52→21:41)
[2017-11-20] MEDS: metFORMIN HCL 500 MG TAB PO SCH ×2 (09:00→18:43)
[2017-11-20] MEDS: risperiDONE 1 MG TAB PO SCH ×2 (09:03→21:42)
[2017-11-20] MEDS: FENOFIBRATE 145 MG TAB PO SCH (09:03)
[2017-11-20] MEDS: METOPROLOL TARTRATE 25 MG TAB PO SCH ×2 (09:05→21:44)
[2017-11-20] MEDS: LISINOPRIL 10 MG TAB PO SCH (09:06)
[2017-11-20] MEDS: LURASIDONE 40 MG TAB PO SCH (09:07)
[2017-11-20] MEDS: PRAVASTATIN SOD 20 MG TAB PO SCH (09:07)
[2017-11-20] MEDS: PANTOPRAZOLE SOD 20 MG DELAYED RELEASE TAB PO SCH (09:07)
--- NOTE | 2017-11-20 12:11 | HHI.PYPN ---
Subjective Remarks Patient was seen and case discussed with nursing. Today, patient is more cooperative with the interview. Per nursing, patient said that there were demons overlooking her bed last night. Patient cannot remember this episode for my visit. Insight is quite poor. She is likely responding to internal stimuli. Eating and sleeping well. Mental Status Examination Appearance: Appropriate Consciousness: Alert Orientation: x4 Motor Activity: Other (No motor abnormalities noted) Speech: Unremarkable Language: Adequate Fund of Knowledge: Adequate Attention and Concentration: Adequate Memory: Unremarkable Mood: Appropriate Affect: Appropriate Thought Process & Associations: Circumstantial Thought Content: Delusional Hallucination Type: Visual Delusion Type: Bizarre, Paranoid Suicidal Ideation: No Suicidal Plan: No Suicidal Intention: No Homicidal Ideation: No Homicidal Plan: No Homicidal Intention: No Insight: Poor Judgment: Poor Results Labs Date/Time Source Procedure Growth Status 11/09/17 22:42 Urine Clean Catch Urine Culture - Final Staphylococcus Lugdunensis Complete Vitals/IOs Vital Signs Date Time Temp Pulse Resp B/P (MAP) Pulse Ox O2 Delivery O2 Flow Rate FiO2 11/20/17 06:05 97.1 63 18 106/50 (68) 95 Assessment & Plan Problem List: (1) Schizophrenia ICD Codes: F20.9 - Schizophrenia, unspecified Assessment & Plan Continue current treatment plan Justification for Cont. Inpt. Patient would decompensate in a less restrictive setting Problem Qualifiers (1) Schizophrenia: Qualified Codes: F20.1 - Disorganized schizophrenia Brian Nicholson DO Nov 20, 2017 12:11
[2017-11-20 15:19] VITALS: BP 109/55; PULSE 82; RESP 17; TEMP 97.1; O2SAT 98
--- NOTE | 2017-11-20 16:10 | HHI.PR ---
Subjective Remarks Follow-up for DM, HTN, UTI, Amanda vulvovaginitis. Patient seen ambulating in her room. She denies any medical complaints. Denies any fever/chills, dysuria , increased urinary frequency/urgency, abdominal pain, nausea/vomiting, or diarrhea. She states her vaginal pruritus has resolved. Blood sugars much better controlled in the low 100s. Discussed with RN, no acute concerns. Vital signs reviewed and stable. Objective Vitals Vital Signs Date Time Temp Pulse Resp B/P (MAP) Pulse Ox O2 Delivery O2 Flow Rate FiO2 11/20/17 15:19 97.1 82 17 109/55 (73) 98 11/20/17 06:05 97.1 63 18 106/50 (68) 95 11/19/17 17:50 98.1 64 18 120/53 (75) 96 I/O 11/19/17 11/19/17 11/19/17 11/20/17 11/20/17 11/20/17 07:00 15:00 23:00 07:00 15:00 23:00 Intake Total 0 ml 360 ml 600 ml 360 ml 480 ml Balance 0 ml 360 ml 600 ml 360 ml 480 ml Intake Oral 0 ml 360 ml 600 ml 360 ml 480 ml # Voids 1 4 1 # Bowel Movements 0 Imaging Last Impressions Chest X-Ray 11/10/17 0000 Signed Impressions: CONCLUSION: No acute cardiopulmonary disease. There is no evidence of pneumonia. Objective Remarks GENERAL: Well-nourished, well-developed elderly female patient in [facility]. SKIN: Warm and dry. HEENT: Normocephalic. Atraumatic. Pupils equal and round. Mucous membranes pink and moist. CARDIOVASCULAR: Regular rate and rhythm. No murmur appreciated. RESPIRATORY: No accessory muscle use. Clear to auscultation. Breath sounds equal bilaterally. GASTROINTESTINAL: Abdomen soft, non-tender, nondistended. Normoactive bowel sounds x4. MUSCULOSKELETAL: No obvious deformities. Extremities without clubbing, cyanosis , or edema. NEUROLOGICAL: Awake and alert. No obvious cranial nerve deficits. Motor grossly within normal limits. Moving all extremities spontaneously. Normal speech. PSYCHIATRIC: Odd mood and affect; insight and judgment fair. Medications and IVs Current Medications Medications (Trade) Dose Ordered Sig/Susy Route Start Time Stop Time Status Last Admin (Tricor) 145 mg DAILY PO 11/10/17 09:00 11/20/17 09:03 (Protonix) 20 mg DAILY PO 11/10/17 09:00 11/20/17 09:07 (Pravachol) 20 mg DAILY PO 11/10/17 09:00 11/20/17 09:07 (Ativan) 1 mg Q6H PRN PO 11/10/17 07:45 (Ativan Inj) 1 mg Q6H PRN IM 11/10/17 07:45 (Ativan) 0.5 mg Q12H PRN PO 11/10/17 07:45 11/20/17 03:39 (Ativan Inj) 0.5 mg Q12H PRN IM 11/10/17 07:45 (Tylenol) 650 mg Q4H PRN PO 11/10/17 07:45 (Milk Of Magnesia Liq) 30 ml DAILY PRN PO 11/10/17 07:45 (Mag-Al Plus Susp Liq) 30 ml Q6H PRN PO 11/10/17 07:45 (Benadryl) 50 mg HS PRN PO 11/11/17 21:00 Future Hold (Atarax) 50 mg Q6H PRN PO 11/11/17 14:45 Future Hold (NovoLOG SUPPLEMENTAL SCALE) 1 ACHS SLIDING SCALE SQ 11/12/17 17:00 11/19/17 17:10 (D50w (Vial) Inj) 50 ml UNSCH PRN IV PUSH 11/13/17 10:00 (Glucagon Inj) 1 mg UNSCH PRN OTHER 11/13/17 10:00 (Glucophage) 500 mg BID@0900,1800 PO 11/13/17 18:00 11/20/17 09:00 (Catapres) 0.1 mg Q6H PRN PO 11/13/17 10:15 (Levemir Inj) 5 units BID SQ 11/14/17 21:00 11/20/17 08:52 (risperDAL) 1 mg Q12HR PO 11/16/17 21:00 11/20/17 09:03 (Pill Splitter) 1 ea UNSCH PRN OTHER 11/16/17 15:00 (Lopressor) 12.5 mg BID PO 11/18/17 21:00 11/20/17 09:05 (Latuda) 60 mg DAILY PO 11/19/17 09:00 11/20/17 09:07 (Prinivil) 5 mg DAILY PO 11/19/17 09:00 11/20/17 09:06 A/P Assessment and Plan 72 yr old female admitted under the psychiatry service. Hospitalist service was consulted for management of her BS. Pt has a prior hx of DM, HTN, schizophrenia and dementia. Schizophrenia/Dementia -Continue management per psychiatry team Diabetes Mellitus: Uncontrolled. Blood glucose 511 upon arrival. HbA1C 15.2, pt not on insulin. -Increased Levemir to 5 units twice daily -Patient started on metformin 500 mg p.o. twice daily -Continue Accu-Cheks and insulin sliding scale -Patient will require insulin at discharge however unsafe to administer on her own -health promotion educator consulted, appreciate assistance -Administrative Intern consulted -Continue diabetic diet -Blood sugars well controlled on current regimen of Levemir 5 units BID and metformin 500 mg BID, will continue. HTN: with episodes of hypotension, occasionally symptomatic -Held hydrochlorothiazide -Decreased lisinopril dose to 5 mg daily with hold parameters -Continue on Lopressor with hold parameters, change dosing to 12.5 mg bid -Fall precautions -Orthostatic BP unremarkable -BP stable on current regimen of lisinopril 5 mg daily and Lopressor 12.5 mg BID UTI: acute -Urine culture growing Staphylococcus lugdunensis -S/p treatment with Cipro 250mg BID x 3 days with probiotic; completed treatment 11/18. Amanda Vulvovaginitis: acute, likely secondary to antibiotics -Given fluconazole 150mg po x1, may repeat in 1 week if symptoms do not improve -symptoms resolved. DVT prophylaxis: Patient is ambulatory Discharge Planning The patient is medically stable at this time, will sign off. Please reconsult hospitalists as needed if any new issues arise. Thank you very much for this consultation. Janine Diaz PA-C Nov 20, 2017 4:10 pm
[2017-11-20] MEDS: diphenhydrAMINE HCL 50 MG CAP PO PRN (21:42)
[2017-11-20 23:13] VITALS: BP 102/56; RESP 16
[2017-11-21 05:41] VITALS: BP 113/53; PULSE 67; RESP 16; TEMP 97.5; O2SAT 97
[2017-11-21] MEDS: INSULIN ASPART SUPPLEMENTAL SCALE SQ SCH ×4 (07:25→20:35)
[2017-11-21] MEDS: PANTOPRAZOLE SOD 20 MG DELAYED RELEASE TAB PO SCH (09:00)
[2017-11-21] MEDS: PRAVASTATIN SOD 20 MG TAB PO SCH (09:00)
[2017-11-21] MEDS: LISINOPRIL 10 MG TAB PO SCH (09:00)
[2017-11-21] MEDS: LURASIDONE 40 MG TAB PO SCH (09:00)
[2017-11-21] MEDS: FENOFIBRATE 145 MG TAB PO SCH (09:00)
[2017-11-21] MEDS: METOPROLOL TARTRATE 25 MG TAB PO SCH ×2 (09:01→21:00)
[2017-11-21] MEDS: risperiDONE 1 MG TAB PO SCH (09:01)
[2017-11-21] MEDS: INSULIN DETEMIR 100 UNITS/ML VIAL SQ SCH ×2 (09:01→21:31)
[2017-11-21] MEDS: metFORMIN HCL 500 MG TAB PO SCH ×2 (09:12→17:44)
--- NOTE | 2017-11-21 14:54 | HHI.PYPN ---
Subjective Remarks Patient seen in day room with floor staff, chart reviewed, patient discussed with staff patient complaint medications. Patient calm pleasant with me though still somewhat paranoid and vigilant, we will increase Resporal to 1 mg a.m. 2 mg 6 PM Review of Systems Except as stated in HPI: all other systems reviewed are Neg Mental Status Examination Appearance: Appropriate Consciousness: Alert Orientation: x4 Motor Activity: Other (No motor abnormalities noted) Speech: Unremarkable Language: Adequate Fund of Knowledge: Adequate Attention and Concentration: Adequate Memory: Unremarkable Mood: Appropriate Affect: Appropriate Thought Process & Associations: Circumstantial Thought Content: Delusional Hallucination Type: Visual Delusion Type: Bizarre, Paranoid Suicidal Ideation: No Suicidal Plan: No Suicidal Intention: No Homicidal Ideation: No Homicidal Plan: No Homicidal Intention: No Insight: Poor Judgment: Poor Results Labs Date/Time Source Procedure Growth Status 11/09/17 22:42 Urine Clean Catch Urine Culture - Final Staphylococcus Lugdunensis Complete Vitals/IOs Vital Signs Date Time Temp Pulse Resp B/P (MAP) Pulse Ox O2 Delivery O2 Flow Rate FiO2 11/21/17 05:41 97.5 67 16 113/53 (73) 97 Intake and Output 11/21/17 11/21/17 11/22/17 08:00 16:00 00:00 Intake Total 480 ml 240 ml Balance 480 ml 240 ml Assessment & Plan Problem List: (1) Schizophrenia ICD Codes: F20.9 - Schizophrenia, unspecified Assessment & Plan Estimated LOS: days patient remained somewhat psychotic but softer and calmer she medication adjustment above Justification for Cont. Inpt. 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
[2017-11-21 18:00] VITALS: BP 107/53; PULSE 78; RESP 16; TEMP 98.7; O2SAT 99
[2017-11-21] MEDS ORDERED: risperiDONE 1 MG TAB PO SCH (18:00)
[2017-11-22] MEDS: LORazepam 0.5 MG TAB PO PRN (01:30)
[2017-11-22 07:00] VITALS: BP 113/58; PULSE 95; RESP 16; TEMP 98.4
[2017-11-22] MEDS: INSULIN ASPART SUPPLEMENTAL SCALE SQ SCH ×4 (07:22→21:44)
[2017-11-22] MEDS: FENOFIBRATE 145 MG TAB PO SCH (08:39)
[2017-11-22] MEDS: risperiDONE 1 MG TAB PO SCH (08:39)
[2017-11-22] MEDS: PRAVASTATIN SOD 20 MG TAB PO SCH (08:39)
[2017-11-22] MEDS: LURASIDONE 40 MG TAB PO SCH (08:39)
[2017-11-22] MEDS: METOPROLOL TARTRATE 25 MG TAB PO SCH ×2 (08:39→20:14)
[2017-11-22] MEDS: PANTOPRAZOLE SOD 20 MG DELAYED RELEASE TAB PO SCH (08:39)
[2017-11-22] MEDS: LISINOPRIL 10 MG TAB PO SCH (08:40)
[2017-11-22] MEDS: INSULIN DETEMIR 100 UNITS/ML VIAL SQ SCH ×2 (08:40→21:45)
[2017-11-22] MEDS: metFORMIN HCL 500 MG TAB PO SCH ×2 (08:47→17:34)
--- NOTE | 2017-11-22 12:48 | HHI.PYPN ---
Subjective Remarks Patient is seen in day room with nurse Malini and medical student Vianney, chart reviewed, patient compliant medications. Patient complains of some mild insomnia. We will offer her Atarax. We will increase p.m. Risperdal to 2 mg Review of Systems Except as stated in HPI: all other systems reviewed are Neg Mental Status Examination Appearance: Appropriate Consciousness: Alert Orientation: x4 Motor Activity: Other (No motor abnormalities noted) Speech: Unremarkable Language: Adequate Fund of Knowledge: Adequate Attention and Concentration: Adequate Memory: Unremarkable Mood: Appropriate Affect: Appropriate Thought Process & Associations: Circumstantial Thought Content: Delusional Hallucination Type: Visual Delusion Type: Bizarre, Paranoid Suicidal Ideation: No Suicidal Plan: No Suicidal Intention: No Homicidal Ideation: No Homicidal Plan: No Homicidal Intention: No Insight: Poor Judgment: Poor Results Labs Date/Time Source Procedure Growth Status 11/09/17 22:42 Urine Clean Catch Urine Culture - Final Staphylococcus Lugdunensis Complete Vitals/IOs Vital Signs Date Time Temp Pulse Resp B/P (MAP) Pulse Ox O2 Delivery O2 Flow Rate FiO2 11/22/17 07:00 98.4 95 16 113/58 (76) 11/21/17 18:00 99 Assessment & Plan Problem List: (1) Schizophrenia ICD Codes: F20.9 - Schizophrenia, unspecified Assessment & Plan Estimated LOS: days patient continues somewhat psychotic with some complaints of insomnia. We will be increasing the p.m. Resporal to 2 mg, we will offer her the Atarax at at bedtime for now Justification for Cont. Inpt. At this time patient would decompensate a place to the lower level of care Discharge Planning To be determined Problem Qualifiers (1) Schizophrenia: Qualified Codes: F20.1 - Disorganized schizophrenia Casey Montano MD Nov 22, 2017 12:48
[2017-11-22] MEDS ORDERED: risperiDONE 1 MG TAB PO SCH (18:00)
[2017-11-22 18:28] VITALS: BP 100/57; PULSE 80; RESP 16; TEMP 97.1; O2SAT 92
[2017-11-23 06:44] VITALS: BP 99/58; PULSE 78; RESP 16; TEMP 97.9; O2SAT 95
[2017-11-23] MEDS: INSULIN ASPART SUPPLEMENTAL SCALE SQ SCH ×4 (07:47→20:50)
[2017-11-23] MEDS: risperiDONE 1 MG TAB PO SCH ×2 (08:49→17:59)
[2017-11-23] MEDS: METOPROLOL TARTRATE 25 MG TAB PO SCH ×2 (08:49→20:29)
[2017-11-23] MEDS: PRAVASTATIN SOD 20 MG TAB PO SCH (08:49)
[2017-11-23] MEDS: PANTOPRAZOLE SOD 20 MG DELAYED RELEASE TAB PO SCH (08:49)
[2017-11-23] MEDS: LURASIDONE 40 MG TAB PO SCH (08:50)
[2017-11-23] MEDS: FENOFIBRATE 145 MG TAB PO SCH (08:51)
[2017-11-23] MEDS: LISINOPRIL 10 MG TAB PO SCH (08:56)
[2017-11-23] MEDS: metFORMIN HCL 500 MG TAB PO SCH ×2 (08:58→17:59)
[2017-11-23] MEDS: INSULIN DETEMIR 100 UNITS/ML VIAL SQ SCH ×2 (08:59→21:34)
--- NOTE | 2017-11-23 14:18 | HHI.PYPN ---
Subjective Remarks Patient seen in her room laying down she is calm cooperative patient seen with RN, chart reviewed. Patient services minimal drug-seeking asking for her Atarax. We will reinforce the scheduled as needed dosing. We will discontinue all the as needed Ativan. We will increase the Resporal to 2 mg twice daily. Decrease the Latuda to 30 mg. Patient otherwise was calm with me she has been no significant behavioral problems. She says she is willing to go back to her [facility] says she has had trouble in the past with some of the other residents Review of Systems Except as stated in HPI: all other systems reviewed are Neg Mental Status Examination Appearance: Appropriate Consciousness: Alert Orientation: x4 Motor Activity: Other (No motor abnormalities noted) Speech: Unremarkable Language: Adequate Fund of Knowledge: Adequate Attention and Concentration: Adequate Memory: Unremarkable Mood: Appropriate Affect: Appropriate Thought Process & Associations: Circumstantial Thought Content: Delusional Hallucination Type: Visual Delusion Type: Bizarre, Paranoid Suicidal Ideation: No Suicidal Plan: No Suicidal Intention: No Homicidal Ideation: No Homicidal Plan: No Homicidal Intention: No Insight: Poor Judgment: Poor Results Labs Date/Time Source Procedure Growth Status 11/09/17 22:42 Urine Clean Catch Urine Culture - Final Staphylococcus Lugdunensis Complete Vitals/IOs Vital Signs Date Time Temp Pulse Resp B/P (MAP) Pulse Ox O2 Delivery O2 Flow Rate FiO2 11/23/17 06:44 97.9 78 16 99/58 (72) 95 Intake and Output 11/23/17 11/23/17 11/24/17 08:00 16:00 00:00 Intake Total 240 ml 240 ml Balance 240 ml 240 ml Assessment & Plan Problem List: (1) Schizophrenia ICD Codes: F20.9 - Schizophrenia, unspecified Assessment & Plan Estimated LOS: days patient continues somewhat psychotic vigilance and paranoid improving, she medication adjustments above Justification for Cont. Inpt. At this time patient would decompensate a place to the lower level of care Discharge Planning Probable return to her [facility] Problem Qualifiers (1) Schizophrenia: Qualified Codes: F20.1 - Disorganized schizophrenia Casey Montano MD Nov 23, 2017 14:18
[2017-11-23 17:56] VITALS: BP 104/51; PULSE 76; RESP 16; O2SAT 94
[2017-11-23] MEDS: diphenhydrAMINE HCL 50 MG CAP PO PRN (22:54)
[2017-11-24 06:25] VITALS: BP 131/59; PULSE 69; RESP 18; TEMP 97.6; O2SAT 96
[2017-11-24] MEDS: INSULIN ASPART SUPPLEMENTAL SCALE SQ SCH (08:00)
[2017-11-24] MEDS: METOPROLOL TARTRATE 25 MG TAB PO SCH (08:11)
[2017-11-24] MEDS: FENOFIBRATE 145 MG TAB PO SCH (08:11)
[2017-11-24] MEDS: PANTOPRAZOLE SOD 20 MG DELAYED RELEASE TAB PO SCH (08:12)
[2017-11-24] MEDS: PRAVASTATIN SOD 20 MG TAB PO SCH (08:12)
[2017-11-24] MEDS: LISINOPRIL 10 MG TAB PO SCH (08:16)
[2017-11-24] MEDS: risperiDONE 1 MG TAB PO SCH (08:25)
[2017-11-24] MEDS: metFORMIN HCL 500 MG TAB PO SCH (08:26)
[2017-11-24] MEDS: INSULIN DETEMIR 100 UNITS/ML VIAL SQ SCH (08:28)
[2017-11-24] MEDS ORDERED: FENO145T2 PO (08:47)
[2017-11-24] MEDS ORDERED: METF500 PO (08:47)
[2017-11-24] MEDS ORDERED: RISP1 PO (08:47)
[2017-11-24] MEDS ORDERED: METO25TA3 PO (08:47)
[2017-11-24] MEDS ORDERED: LISI10TA3 PO (08:47)
[2017-11-24] MEDS ORDERED: PANT20TA2 PO (08:47)
[2017-11-24] MEDS ORDERED: PRAV20TA2 PO (08:47)
--- NOTE | 2017-11-24 08:51 | HHI.DS ---
Psychiatry Discharge Summary Inpatient Psychiatric care?: Yes Advance Directive: No Mental Health AdvanceDirective: No Health Care Proxy: No Admission Admission Date November 10, 2017 at 07:38 Admission Diagnosis: (1) Schizophrenia ICD Code: F20.9 - Schizophrenia, unspecified Brief History The patient is a 72-year-old woman, domiciled in [facility], , with a 50 y/o daughter, supported by SS, with PPHx od schizophrenia and dementia, multiple psychiatric hospitalizations, hospitalized here in [place] in 2013, documentation reviewed, no SAs, she is on Latuda 80 mg precribed by visiting psychiatrist, with PMH of DM, HTN, who presents to the ED under Márquez act for psychiatric evaluation. According to the Márquez act the patient states that she is going to cut off her left hand with a pair of scissors to kill her self. On initial ER exam this is a pleasantly confused elderly white female in no acute distress. She denies suicidal or homicidal ideation. She denies any somatic complaints. She is oriented to date, year, the president. She knows that she lives in [place]. She states that she is here "because I kept getting attacked by wild animals." She states that "a neighbor putting them in my yard." She is unable to provide any other meaningful history. On psychiatric evaluation the patient is calm, cooperative. The patient reports that she is very hungry. She says that she had a good sleep. She is malodorous disorganized, but redirectable. The patient reports that she has been very depressed. She also states that she is "very suicidal" but at the same time she is laughing inappropriately. The patient reported that she has been hearing voices telling her different things, but would not elaborate about these voices. "Sometimes the voices tell me go here or go there". She reports that she has been so depressed that she stopped taking her medication for diabetes, hypertension and schizophrenia. "I do not care anymore". The patient does not have an active plan to commit suicide at this moment. He is more focused in getting. She has been a little bit agitated in the ER, very disorganized, talking to herself. But no aggressive behavior reported. The patient is fully oriented 3, with no fluctuation of consciousness, no attention deficit at this moment. The patient denies the use of alcohol and illegal drugs. She was initially diagnosed with UTI in the ER, was treated with Keflex 100 mg every 8 hours, her random glucose was over 500s teated with insulin. Tobacco Use In Past 30 Days: No Tobacco Past 30 Days Alcohol Use: Never Hospital Course His hospital course was uneventful, she was calm and cooperative from day of admission, the paranoia suspiciousness overall psychotic flavor gradually resolved with compliance with medication and with the addition of the Resporal. With transition from Latuda to Resporal, patient continues to do well she was no behavioral problems. She denies suicidality homicidality he states the voices are essentially gone right now there are no visions. At this time I feel patient is reached maximum benefit of this hospitalization will be discharged today to [facility] to follow up with services that facility Results Blood Pressure 131 / 59 Vital Signs Date Time Temp Pulse Resp B/P (MAP) Pulse Ox O2 Delivery O2 Flow Rate FiO2 11/24/17 06:25 97.6 69 18 131/59 (83) 96 Laboratory Results Test 11/11/17 10:20 11/13/17 08:03 Cholesterol Level 161 MG/DL (120-200) HDL Cholesterol 40.7 MG/DL (40.0-60.0) LDL Cholesterol 84 MG/DL (0-99) Triglycerides Level 182 MG/DL (42-150) Hemoglobin A1c 15.0 % (4.3-6.0) Summary of Procedures None done Imaging Last Impressions Chest X-Ray 11/10/17 0000 Signed Impressions: CONCLUSION: No acute cardiopulmonary disease. There is no evidence of pneumonia. Pending results at discharge: No Medications # of Antipsychotic meds at D/C: 1 Approp Antipsych med options 1 - Minimum of three failed multiple trials of monotherapy. 2 - Documented plan to taper to monotherapy due to previous use of multiple meds OR cross-taper in progress at D/C. 3 - Documentation of augmentation of Clozapine. 4 - Justification other than those listed in allowable values 1-3, document here : Discharge Discharge Date: Nov 24, 2017 Discharge Diagnosis: (1) Schizophrenia Diagnosis: Principal ICD Code: F20.9 - Schizophrenia, unspecified Pt Condition on Discharge: Stable Discharge Disposition: Discharge to SNF Discharge Instructions Diet Instructions: As Tolerated, No Restrictions Activities you can perform: Regular-No Restrictions Scheduled Appointment: [facility] Discharge Time > 30 minutes Mental Status Examination Appearance: Appropriate Consciousness: Alert Orientation: x4 Motor Activity: Other (No motor abnormalities noted) Speech: Unremarkable Language: Adequate Fund of Knowledge: Adequate Attention and Concentration: Adequate Memory: Unremarkable Mood: Appropriate Affect: Appropriate Thought Process & Associations: Circumstantial Thought Content: Delusional Hallucination Type: Visual Delusion Type: Bizarre, Paranoid Suicidal Ideation: No Suicidal Plan: No Suicidal Intention: No Homicidal Ideation: No Homicidal Plan: No Homicidal Intention: No Insight: Poor Judgment: Poor Discharge/Advance Care Plan Health Problems: (1) Schizophrenia Goals to promote your health * To prevent worsening of your condition and complications * To maintain your health at the optimal level Directions to meet your goals Take your medications as prescribed Follow your dietary instruction Follow activity as directed Keep your appointments as scheduled Take your immunizations and boosters as scheduled If your symptoms worsen call your PCP, if no PCP go to Urgent Care Center or Emergency Room For 10/01 questions related to your inpatient stay or results of tests pending at discharge, please contact Dr. Casey Montano at Smoking is Dangerous to Your Health. Avoid second hand smoking Problem Qualifiers (1) Schizophrenia: Qualified Codes: F20.1 - Disorganized schizophrenia Casey Montano MD Nov 24, 2017 08:51
[2017-11-24] MEDS ORDERED: LURASIDONE 40 MG TAB PO SCH (09:00)
== END 2017-11-24 12:35 | DRG 885 ==
LOC: NEDAMB 21:31 → NEDA 11-10 07:38 → H260 11-10 09:20 → H250 11-13 19:39
PROVIDERS: ADMIT Psychiatry & Neurology Psychiatry; ATTEND Psychiatry & Neurology Psychiatry
DX: F20.1 Disorganized schizophrenia (principal); I95.9 Hypotension, unspecified; F03.90 Unspecified dementia, unspecified severity, without behavioral disturbance, psychotic disturbance, mood disturbance, and anxiety; E11.65 Type 2 diabetes mellitus with hyperglycemia; R45.851 Suicidal ideations; N39.0 Urinary tract infection, site not specified; B37.3 Candidiasis of vulva and vagina; F32.9 Major depressive disorder, single episode, unspecified; F41.9 Anxiety disorder, unspecified; G47.00 Insomnia, unspecified; I10 Essential (primary) hypertension; Z72.0 Tobacco use; Z90.710 Acquired absence of both cervix and uterus; Z81.8 Family history of other mental and behavioral disorders; Z91.14 Patient's other noncompliance with medication regimen; Z79.84 Long term (current) use of oral hypoglycemic drugs; B95.7 Other staphylococcus as the cause of diseases classified elsewhere
CPT/HCPCS: 71046; 80048; 80053; 80061; 81001; 82010; 82805; 82948; 83036; 85025; 86403; 87077; 87086; 87186; 96361; 96365; 96375; J0696; J1815; J7030; Q0163

== ENCOUNTER 2018-02-15 16:37 | Inpatient (IN) ==
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
[2018-02-15 18:51] LABS: Baso # (Auto) 0.1 th/mm3 (0.0-0.2); Baso % (Auto) 0.5 % (0.0-2.0); Eos # (Auto) 0.1 th/mm3 (0.0-0.4); Eos % (Auto) 0.7 % (0.0-4.0); Hematocrit 34.2 % (35.0-46.0); Hemoglobin 11.4 gm/dL (11.6-15.3); Lymph # (Auto) 3.5 th/mm3 (1.0-4.8); Lymph % (Auto) 27.2 % (9.0-44.0); Mean Corpuscular HGB Conc 33.3 % (32.0-36.0); Mean Corpuscular Hemoglobin 27.2 pg (27.0-34.0); Mean Corpuscular Volume 81.8 fL (80.0-100.0); Mean Platelet Volume 7.7 fL (7.0-11.0); Mono % (Auto) 7.6 % (0.0-8.0); Neut # (Auto) 8.3 th/mm3 (1.8-7.7); Platelet Count 445 th/mm3 (150-450); Red Blood Count 4.18 mil/mm3 (4.00-5.30); Red Cell Distribution Width 15.1 % (11.6-17.2); White Blood Count 12.9 th/mm3 (4.0-11.0)
[2018-02-15 19:01] LABS: Amphetamine Screen,Urine Neg (Neg); Barbiturate Screen,Urine Neg (Neg); Cannabinoid Screen,Urine Neg (Neg); Cocaine Screen,Urine Neg (Neg)
[2018-02-15 19:03] LABS: Opiate Screen,Urine Neg (Neg)
[2018-02-15 19:05] LABS: Bacteria,Urine Occasional /hpf; Bilirubin,Urine Negative (Negative); Clarity,Urine Clear (Clear); Color,Urine Yellow (Yellw/Straw); Glucose,Urine (UA) Negative (Negative); Leukocyte Esterase,Urine Large (Negative); Nitrite,Urine Negative (Negative); Specific Gravity,Urine 1.006 (1.002-1.035); Squamous Epithelial Cell,Urine <1 /hpf (0-5)
[2018-02-15 19:08] LABS: Albumin 3.6 g/dL (3.4-5.0); Anion Gap 11 meq/L (5-15); Aspartate Aminotransferase 21 U/L (15-37); Blood Urea Nitrogen 9 mg/dL (7-18); Calcium 8.8 mg/dL (8.5-10.1); Carbon Dioxide 23.5 meq/L (21.0-32.0); Chloride 106 meq/L (98-107); Glomerular Filtration Rate Greater Than 89 mL/min (>89); Glucose,Random 90 mg/dL (74-106); Potassium 3.5 meq/L (3.5-5.1); Sodium 140 meq/L (136-145)
[2018-02-15 19:09] LABS: Alanine Aminotransferase 27 U/L (10-53)
[2018-02-15 19:19] LABS: Alkaline Phosphatase 70 U/L (45-117); Thyroid Stimulating Hormone 0.774 uIU/mL (0.358-3.740); Total Protein 7.5 g/dL (6.4-8.2)
[2018-02-15] MEDS ORDERED: Aluminum/Magnesium/Simethacone Susp 30 ML UDC PO PRN (21:46)
[2018-02-15] MEDS: traZODone 100 MG Tablet PO SCH (21:59)
[2018-02-15] MEDS: Metoprolol Tartrate 25 MG Tablet PO SCH (22:01)
[2018-02-16] MEDS: Pantoprazole Sodium 20 MG DR Tablet PO SCH (06:25)
[2018-02-16 08:24] LABS: Calcium 9.1 mg/dL (8.5-10.1); Carbon Dioxide 26.5 meq/L (21.0-32.0); Potassium 3.7 meq/L (3.5-5.1)
[2018-02-16 08:27] LABS: Chol/HDL Ratio 2.44 Ratio; HDL Cholesterol 56.5 mg/dL (40.0-60.0)
[2018-02-16] MEDS: Metoprolol Tartrate 25 MG Tablet PO SCH ×2 (08:40→21:06)
[2018-02-16] MEDS: Lisinopril 5 MG Tablet PO SCH (08:40)
[2018-02-16] MEDS: Sertraline 50 MG Tablet PO SCH (13:14)
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
[2018-02-16 15:47] LABS: Hemoglobin A1c 6.5 % (4.3-6.0)
[2018-02-16] MEDS: QUEtiapine 100 MG Tablet PO SCH (21:06)
[2018-02-16] MEDS: Insulin NovoLOG Aspart Correctional Sugar Inj SQ SCH (21:08)
[2018-02-16] MEDS: traZODone 100 MG Tablet PO SCH (21:09)
[2018-02-17] MEDS: Pantoprazole Sodium 20 MG DR Tablet PO SCH ×2 (06:19→09:09)
[2018-02-17] MEDS: Insulin NovoLOG Aspart Correctional Sugar Inj SQ SCH ×2 (06:21→09:51)
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
[2018-02-17] MEDS: Sertraline 50 MG Tablet PO SCH (09:08)
[2018-02-17] MEDS: Lisinopril 5 MG Tablet PO SCH (09:09)
[2018-02-17] MEDS: QUEtiapine 100 MG Tablet PO SCH (09:09)
[2018-02-17] MEDS: Metoprolol Tartrate 25 MG Tablet PO SCH ×2 (09:09→21:38)
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
--- NOTE | 2018-02-17 14:13 | P.PNPSY ---
Subjective Remarks: Patient seen and west with nurse., Chart reviewed, patient compliant medications. Patient continues to have auditory hallucinations with vague delusional ideation related to Fish. She also continues to have difficulty with insomnia both initial and mid. We will discontinue patient's trazodone we will adjust the patient's Seroquel to 50 mg 8 AM and 4 PM and 200 mg at at bedtime Review of Systems All other systems reviewed negative except as stated in HPI Mental Status Examination Appearance: Appropriate Consciousness: Alert Orientation: Person, Place, Date/Time, Situation Motor Activity: Normal gait Speech: Unremarkable Language: Adequate Fund of Knowledge: Adequate Attention and Concentration: Adequate Memory: Unremarkable (Fair fair) Mood: Other (Euthymic to mildly irritable) Affect: Other (Good range and intensity) Thought Process & Associations: Disorganized Thought Content: Hallucinations Hallucination Type: Auditory, Visual Delusion Type: Paranoid Suicidal Ideation: No Suicidal Plan: No Suicidal Intention: No Homicidal Ideation: No Homicidal Plan: No Homicidal Intention: No Insight: Fair Judgment: Adequate (Fair) Assessment and Plan - Assessment (1) Schizoaffective disorder, bipolar type Code(s): F25.0 - Schizoaffective disorder, bipolar type Status: Acute - Plan Plan: Patient continues paranoid and psychotic though somewhat softer C medication adjustments above Justification for Continued Inpatient Stay: At this time patient would decompensate a place to a lower level of care Discharge Planning: To be determined Request Healthcare Surrogate/Guardian Advocate?: Yes
[2018-02-17] MEDS: QUEtiapine 25 MG Tablet PO SCH (18:44)
[2018-02-18] MEDS: Insulin NovoLOG Aspart Correctional Sugar Inj SQ SCH ×4 (02:00→18:00)
[2018-02-18] MEDS: Pantoprazole Sodium 20 MG DR Tablet PO SCH ×3 (08:30→08:37)
[2018-02-18] MEDS: Lisinopril 5 MG Tablet PO SCH (08:30)
[2018-02-18] MEDS: Sertraline 50 MG Tablet PO SCH (08:31)
[2018-02-18] MEDS: Metoprolol Tartrate 25 MG Tablet PO SCH ×2 (08:33→21:02)
[2018-02-18] MEDS: Acetaminophen 325 MG Tablet PO PRN (08:39)
[2018-02-18] MEDS: QUEtiapine 25 MG Tablet PO SCH ×2 (08:39→16:23)
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
[2018-02-18] MEDS: Loperamide 2 MG Capsule PO PRN (16:23)
[2018-02-19] MEDS: Insulin NovoLOG Aspart Correctional Sugar Inj SQ SCH ×2 (01:00→06:32)
[2018-02-19] MEDS: Metoprolol Tartrate 25 MG Tablet PO SCH ×3 (09:00→21:32)
[2018-02-19] MEDS: Lisinopril 5 MG Tablet PO SCH (09:00)
[2018-02-19] MEDS: QUEtiapine 25 MG Tablet PO SCH ×2 (09:00→16:38)
[2018-02-19] MEDS: Sertraline 50 MG Tablet PO SCH (09:01)
[2018-02-19] MEDS: Pantoprazole Sodium 20 MG DR Tablet PO SCH (09:02)
[2018-02-19] MEDS: Loperamide 2 MG Capsule PO PRN (09:28)
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
[2018-02-19] MEDS ORDERED: Dextrose 50% in Water 50 ML Vial IV.PUSH PRN (11:07)
[2018-02-19] MEDS ORDERED: Insulin NovoLOG Aspart Correctional Sugar Inj SQ SCH (12:00)
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
[2018-02-20] MEDS: Lisinopril 5 MG Tablet PO SCH (08:56)
[2018-02-20] MEDS: Sertraline 50 MG Tablet PO SCH (08:56)
[2018-02-20] MEDS: Metoprolol Tartrate 25 MG Tablet PO SCH ×2 (08:56→20:15)
[2018-02-20] MEDS: Pantoprazole Sodium 20 MG DR Tablet PO SCH (08:57)
[2018-02-20] MEDS: QUEtiapine 25 MG Tablet PO SCH (08:59)
--- NOTE | 2018-02-20 12:19 | P.PNPSY ---
Subjective Remarks: Patient seen in the day room with nurse. Chart reviewed. Patient continues somewhat psychotic focusing on imaginary animals and insects though there is some small amount of reality testing starting with her. She is compliant with the medication. See medication adjustments of the Seroquel we will adjust medications to 50 mg in the morning 100 mg in the afternoon 200 mg at at bedtime Review of Systems All other systems reviewed negative except as stated in HPI Mental Status Examination Appearance: Appropriate Consciousness: Alert Orientation: Person, Place, Date/Time, Situation Motor Activity: Normal gait Speech: Unremarkable Language: Adequate Fund of Knowledge: Adequate Attention and Concentration: Adequate Memory: Unremarkable (Fair fair) Mood: Other (Euthymic to mildly irritable) Affect: Other (Good range and intensity) Thought Process & Associations: Disorganized Thought Content: Hallucinations Hallucination Type: Auditory, Visual Delusion Type: Paranoid Suicidal Ideation: No Suicidal Plan: No Suicidal Intention: No Homicidal Ideation: No Homicidal Plan: No Homicidal Intention: No Insight: Fair Judgment: Adequate (Fair) Assessment and Plan - Assessment (1) Schizoaffective disorder, bipolar type Code(s): F25.0 - Schizoaffective disorder, bipolar type Status: Acute - Plan Plan: Patient continues psychotic though somewhat softer please see medication adjustments above Justification for Continued Inpatient Stay: At this time patient would decompensate a place to a lower level of care Discharge Planning: Possible return back to her prison Request Healthcare Surrogate/Guardian Advocate?: Yes
[2018-02-20] MEDS: QUEtiapine 100 MG Tablet PO SCH (15:51)
[2018-02-20] MEDS: Acetaminophen 325 MG Tablet PO PRN (20:13)
[2018-02-21] MEDS: Sertraline 50 MG Tablet PO SCH (08:46)
[2018-02-21] MEDS: Metoprolol Tartrate 25 MG Tablet PO SCH ×2 (08:47→20:44)
[2018-02-21] MEDS: Lisinopril 5 MG Tablet PO SCH (08:47)
[2018-02-21] MEDS: Pantoprazole Sodium 20 MG DR Tablet PO SCH (08:47)
[2018-02-21] MEDS: QUEtiapine 25 MG Tablet PO SCH (08:48)
--- NOTE | 2018-02-21 12:27 | P.PNPSY ---
Subjective Remarks: Patient seen in her room with nurse, chart reviewed, patient alert vague about persistent voices, she still appears at times to have visual issues related to seeing insects bugs and Fish. Sleep is not been very good. She is also sad. She does have some insight but is able to express frustrations with her life suffering from mental illness. We will increase Zoloft to 50 mg daily increase at bedtime Seroquel to 250 mg Review of Systems All other systems reviewed negative except as stated in HPI Mental Status Examination Appearance: Appropriate Consciousness: Alert Orientation: Person, Place, Date/Time, Situation Motor Activity: Normal gait Speech: Unremarkable Language: Adequate Fund of Knowledge: Adequate Attention and Concentration: Adequate Memory: Unremarkable (Fair fair) Mood: Other (Euthymic to mildly irritable) Affect: Other (Good range and intensity) Thought Process & Associations: Disorganized Thought Content: Hallucinations Hallucination Type: Auditory, Visual Delusion Type: Paranoid Suicidal Ideation: No Suicidal Plan: No Suicidal Intention: No Homicidal Ideation: No Homicidal Plan: No Homicidal Intention: No Insight: Poor Judgment: Poor Assessment and Plan - Assessment (1) Schizoaffective disorder, bipolar type Code(s): F25.0 - Schizoaffective disorder, bipolar type Status: Acute - Plan Plan: Patient remained psychotic and delusional C medication adjustments above Justification for Continued Inpatient Stay: At this time patient would decompensate a place to a lower level of care Discharge Planning: To be determined. Patient is somewhat adamant about not returning to her prior placement Request Healthcare Surrogate/Guardian Advocate?: Yes
[2018-02-21] MEDS: QUEtiapine 100 MG Tablet PO SCH (13:06)
[2018-02-21 18:19] VITALS: O2SAT 98
[2018-02-22] MEDS: QUEtiapine 25 MG Tablet PO SCH (08:49)
[2018-02-22] MEDS: Sertraline 50 MG Tablet PO SCH (08:50)
[2018-02-22] MEDS: Lisinopril 5 MG Tablet PO SCH (08:50)
[2018-02-22] MEDS: Pantoprazole Sodium 20 MG DR Tablet PO SCH (08:50)
[2018-02-22] MEDS: Metoprolol Tartrate 25 MG Tablet PO SCH ×2 (08:51→21:50)
--- NOTE | 2018-02-22 14:12 | P.PNPSY ---
Subjective Remarks: Patient seen in her room with floor staff, chart reviewed, patient calm cooperative with me pleasant since she slept somewhat better last night. The voices persist though have they have diminished the visual perceptions have essentially gone. Patient continues to show fair insight into her disease. This time I feel she is improved compliant with her she is able to sign voluntary thus I will lift Márquez act allow patient to sign voluntary Review of Systems All other systems reviewed negative except as stated in HPI Mental Status Examination Appearance: Appropriate Consciousness: Alert Orientation: Person, Place, Date/Time, Situation Motor Activity: Normal gait Speech: Unremarkable Language: Adequate Fund of Knowledge: Adequate Attention and Concentration: Adequate Memory: Unremarkable (Fair fair) Mood: Other (Euthymic to mildly irritable) Affect: Other (Good range and intensity) Thought Process & Associations: Disorganized Thought Content: Hallucinations Hallucination Type: Auditory (Diminishing), Visual (Diminishing) Delusion Type: Paranoid Suicidal Ideation: No Suicidal Plan: No Suicidal Intention: No Homicidal Ideation: No Homicidal Plan: No Homicidal Intention: No Insight: Poor Judgment: Poor Assessment and Plan - Assessment (1) Schizoaffective disorder, bipolar type Code(s): F25.0 - Schizoaffective disorder, bipolar type Status: Acute - Plan Plan: Patient's psychosis is diminishing, she is compliant with medications. Will lift Márquez act allow patient to sign voluntary. Patient does denies suicidality and homicidality at this time Justification for Continued Inpatient Stay: At this time patient would decompensate if placed in a lower level of care Discharge Planning: To be determined Request Healthcare Surrogate/Guardian Advocate?: Yes
[2018-02-22] MEDS: QUEtiapine 100 MG Tablet PO SCH (14:51)
[2018-02-23] MEDS: Sertraline 50 MG Tablet PO SCH (09:05)
[2018-02-23] MEDS: Metoprolol Tartrate 25 MG Tablet PO SCH ×2 (09:06→21:50)
[2018-02-23] MEDS: QUEtiapine 25 MG Tablet PO SCH (09:07)
[2018-02-23] MEDS: Pantoprazole Sodium 20 MG DR Tablet PO SCH (09:08)
[2018-02-23] MEDS: Lisinopril 5 MG Tablet PO SCH (09:08)
--- NOTE | 2018-02-23 12:11 | P.PNPSY ---
Subjective Remarks: Patient seen in her room with floor staff, chart reviewed, patient compliant medication. Patient remains somewhat delusional though there is no behavioral issues related to it. She is a focus on insects and bugs. We will increase patient's daily Seroquel to 100 mg in the morning 100 mg at 4 PM continue H's dose no change Review of Systems All other systems reviewed negative except as stated in HPI Mental Status Examination Appearance: Appropriate Consciousness: Alert Orientation: Person, Place, Date/Time, Situation Motor Activity: Normal gait Speech: Unremarkable Language: Adequate Fund of Knowledge: Adequate Attention and Concentration: Adequate Memory: Unremarkable (Fair fair) Mood: Other (Euthymic to mildly irritable) Affect: Other (Good range and intensity) Thought Process & Associations: Disorganized Thought Content: Hallucinations Hallucination Type: Auditory (Diminishing), Visual (Diminishing) Delusion Type: Paranoid Suicidal Ideation: No Suicidal Plan: No Suicidal Intention: No Homicidal Ideation: No Homicidal Plan: No Homicidal Intention: No Insight: Poor Judgment: Poor Assessment and Plan - Assessment (1) Schizoaffective disorder, bipolar type Code(s): F25.0 - Schizoaffective disorder, bipolar type Status: Acute - Plan Plan: Patient remained somewhat psychotic but calm and pleasant see medication adjustment above Justification for Continued Inpatient Stay: At this time patient would decompensate if placed in a lower level of care Discharge Planning: To be determined Request Healthcare Surrogate/Guardian Advocate?: Yes
[2018-02-23] MEDS: QUEtiapine 100 MG Tablet PO SCH (14:47)
[2018-02-24 06:28] VITALS: BP 124/56; PULSE 56; RESP 19; TEMP 97.8
[2018-02-24] MEDS: Pantoprazole Sodium 20 MG DR Tablet PO SCH ×2 (08:53→09:31)
[2018-02-24] MEDS: QUEtiapine 100 MG Tablet PO SCH ×2 (08:54→09:36)
[2018-02-24] MEDS: Sertraline 50 MG Tablet PO SCH (08:55)
[2018-02-24] MEDS: Metoprolol Tartrate 25 MG Tablet PO SCH (09:33)
[2018-02-24] MEDS: Lisinopril 5 MG Tablet PO SCH (09:33)
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
== END 2018-02-24 14:00 ==
LOC: NEPD 16:37 → NEDA 20:57 → H260 21:23
PROVIDERS: ADMIT Psychiatry & Neurology Psychiatry; ATTEND Psychiatry & Neurology Psychiatry